=== PATIENT | female | born 1950 | race Caucasian/White ===

== ENCOUNTER → 2024-03-01 14:20 | Outpatient (REF) | payer MEDICARE, SELFPAY ==
[2024-03-01 16:27] LABS: % Basophils 0.8 % (0-2); % Eosinophils 3.1 % (0-6); % Immature Granulocytes 0.2 % (0-0.5); % Lymphocytes 30.1 % (20.5-51.1); % Monocytes 8.7 % (1.7-9.3); % Neutrophils 57.1 % (42.2-75.2); Absolute Basophils 0.1 10^3/uL (0-0.2); Absolute Eosinophils 0.3 10^3/uL (0-0.7); Absolute Lymphocytes 2.9 10^3/uL (1.2-3.4); Absolute Monocytes 0.8 10^3/uL (0.1-0.6); Absolute Neutrophils 5.5 10^3/uL (1.4-6.5); Hemoglobin 16.2 g/dL (12.0-16.0); Mean Corp Hgb Conc. 33.8 g/dL (33.0-37.0); Mean Corpuscular Hgb 31.5 pg (27.0-31.0); Mean Corpuscular Volume 93.4 fL (81.0-99.0); Mean Platelet Volume 10.4 fL (7.4-10.4); Nucleated Red Blood Cells % 0 %; Platelet Count 211 10^3/uL (130-400); Red Blood Cell Count 5.14 10^6/uL (4.20-5.40); Red Cell Dist. Width 13.4 % (11.5-14.5); White Blood Cell Count 9.6 10^3/uL (4.8-10.8)
[2024-03-01 16:38] LABS: ALT (SGPT) 30 U/L (0-35); AST (SGOT) 32 U/L (14-36); Albumin 4.9 g/dl (3.5-5.0); Alkaline Phosphatase 76 U/L (38-126); Blood Urea Nitrogen 14 mg/dl (7-17); Calcium 9.7 mg/dl (8.4-10.2); Carbon Dioxide 32 mmol/L (22-30); Chloride 98 mmol/L (98-107); Glucose 83 mg/dl (70-99); LDH 241 U/L (120-246); Potassium 3.8 mmol/L (3.5-5.1); Sodium 136 mmol/L (135-145); Total Bilirubin 0.5 mg/dl (0.2-1.3); Total Protein 7.6 g/dl (6.3-8.2); Uric Acid 6.4 mg/dl (2.5-6.2); eGFR > 60.00
== END ==
LOC: REG 14:20
PROVIDERS: ATTENDING PHYSICIAN Internal Medicine Hematology & Oncology; FAMILY PHYSICIAN Internal Medicine; REFERRING PHYSICIAN Internal Medicine Rheumatology
DX: R71.8 Other abnormality of red blood cells (principal); R79.0 Abnormal level of blood mineral; I82.409 Acute embolism and thrombosis of unspecified deep veins of unspecified lower extremity; D75.1 Secondary polycythemia; C85.19 Unspecified B-cell lymphoma, extranodal and solid organ sites
CPT/HCPCS: 36415; 80053; 83615; 84550; 85025

== ENCOUNTER → 2024-03-12 07:12 | Outpatient (REF) | payer MEDICARE, SELFPAY | LOC: RCS 07:12 | PROVIDERS: ATTENDING PHYSICIAN Student in an Organized Health Care Education/Training Program; FAMILY PHYSICIAN Internal Medicine; OTHER PHYSICIAN Internal Medicine Rheumatology; REFERRING PHYSICIAN Internal Medicine Hematology & Oncology | DX: C85.99 Non-Hodgkin lymphoma, unspecified, extranodal and solid organ sites (principal) | CPT/HCPCS: 93306 ==

== ENCOUNTER → 2024-03-14 09:30 | Outpatient (REF) | payer MEDICARE, SELFPAY ==
[2024-03-14 10:09] LABS: % Basophils 0.9 % (0-2); % Eosinophils 4.1 % (0-6); % Immature Granulocytes 0.2 % (0-0.5); % Lymphocytes 29.1 % (20.5-51.1); % Monocytes 12.2 % (1.7-9.3); % Neutrophils 53.5 % (42.2-75.2); Absolute Basophils 0.1 10^3/uL (0-0.2); Absolute Eosinophils 0.4 10^3/uL (0-0.7); Absolute Lymphocytes 2.5 10^3/uL (1.2-3.4); Absolute Neutrophils 4.6 10^3/uL (1.4-6.5); Hematocrit 47.6 % (37.0-47.0); Hemoglobin 16.2 g/dL (12.0-16.0); Mean Corpuscular Hgb 31.8 pg (27.0-31.0); Mean Corpuscular Volume 93.3 fL (81.0-99.0); Mean Platelet Volume 10.1 fL (7.4-10.4); Nucleated Red Blood Cells % 0 %; Platelet Count 194 10^3/uL (130-400); White Blood Cell Count 8.6 10^3/uL (4.8-10.8)
[2024-03-14 10:18] VITALS: BP 133/67; BP_SYST 82
[2024-03-14 10:18] LABS: INR 0.97; PT 12.9 Sec (11.4-14.6)
[2024-03-14] MEDS: ATIVAN 0.5 MG IV (10:42)
[2024-03-14] MEDS: NSS (PRESERVATIVE FREE) 0.25 ML IV (10:43)
[2024-03-14] MEDS: FLUSH (NSS) 1 FLUSH IV (10:43)
[2024-03-14 11:52] VITALS: BP 113/95
== END ==
LOC: RADI 09:30
PROVIDERS: ATTENDING PHYSICIAN Internal Medicine Hematology & Oncology; FAMILY PHYSICIAN Internal Medicine; REFERRING PHYSICIAN Internal Medicine Rheumatology
DX: R71.8 Other abnormality of red blood cells (principal); R79.0 Abnormal level of blood mineral; D68.8 Other specified coagulation defects; D75.1 Secondary polycythemia
CPT/HCPCS: 88305; 88311; 88312; 36415; 38222; 77012; 85025; 85610; 88313; 88341; 88342

== ENCOUNTER → 2024-03-25 09:31 | Outpatient (REF) | payer MEDICARE, SELFPAY ==
[2024-03-25 10:10] VITALS: BP 121/66; BP_SYST 72
[2024-03-25] MEDS: VANCOCIN 200 IV (11:23)
[2024-03-25 12:35] VITALS: BP 111/68
[2024-03-25 12:40] VITALS: BP 125/63
[2024-03-25 12:45] VITALS: BP 109/67
== END ==
LOC: RADI 09:31
PROVIDERS: ATTENDING PHYSICIAN Internal Medicine Hematology & Oncology; FAMILY PHYSICIAN Internal Medicine
DX: C85.19 Unspecified B-cell lymphoma, extranodal and solid organ sites (principal)
CPT/HCPCS: 36561; 38222; 76937; 77001; 77012; 99152; 99153; C1788

== ENCOUNTER → 2024-04-15 10:37 | Outpatient (REF) | payer MEDICARE, SELFPAY ==
[2024-04-15 12:51] LABS: % Basophils 0.6 % (0-2); % Eosinophils 5.1 % (0-6); % Immature Granulocytes 0.2 % (0-0.5); % Lymphocytes 27.5 % (20.5-51.1); % Monocytes 9.8 % (1.7-9.3); % Neutrophils 56.8 % (42.2-75.2); Absolute Eosinophils 0.3 10^3/uL (0-0.7); Absolute Lymphocytes 1.7 10^3/uL (1.2-3.4); Absolute Monocytes 0.6 10^3/uL (0.1-0.6); Absolute Neutrophils 3.6 10^3/uL (1.4-6.5); Hematocrit 44.7 % (37.0-47.0); Mean Corp Hgb Conc. 33.6 g/dL (33.0-37.0); Mean Corpuscular Hgb 30.7 pg (27.0-31.0); Mean Corpuscular Volume 91.6 fL (81.0-99.0); Mean Platelet Volume 10.4 fL (7.4-10.4); Nucleated Red Blood Cells % 0 %; Platelet Count 202 10^3/uL (130-400); Red Blood Cell Count 4.88 10^6/uL (4.20-5.40); White Blood Cell Count 6.3 10^3/uL (4.8-10.8)
[2024-04-15 13:37] LABS: ALT (SGPT) 25 U/L (0-35); AST (SGOT) 38 U/L (14-36); Albumin 4.5 g/dl (3.5-5.0); Alkaline Phosphatase 70 U/L (38-126); Blood Urea Nitrogen 16 mg/dl (7-17); Calcium 9.1 mg/dl (8.4-10.2); Carbon Dioxide 29 mmol/L (22-30); Chloride 101 mmol/L (98-107); Glucose 92 mg/dl (70-99); Potassium 3.8 mmol/L (3.5-5.1); Sodium 141 mmol/L (135-145); Total Bilirubin 0.7 mg/dl (0.2-1.3); Total Protein 7.2 g/dl (6.3-8.2); eGFR > 60.00
[2024-04-15 13:39] LABS: C-Reactive Protein < 5.00 mg/L (0.0-10.00)
== END ==
LOC: HWLAB 10:37
PROVIDERS: ATTENDING PHYSICIAN Internal Medicine Hematology & Oncology; FAMILY PHYSICIAN Internal Medicine; REFERRING PHYSICIAN Internal Medicine Rheumatology
DX: R71.8 Other abnormality of red blood cells (principal); R79.0 Abnormal level of blood mineral; D75.1 Secondary polycythemia; C85.19 Unspecified B-cell lymphoma, extranodal and solid organ sites; E55.9 Vitamin D deficiency, unspecified; M35.00 Sjogren syndrome, unspecified; Z51.81 Encounter for therapeutic drug level monitoring
CPT/HCPCS: 36415; 80053; 82784; 83521; 84155; 84165; 85025; 86140; 86334

== ENCOUNTER → 2024-04-16 15:50 | Outpatient (REF) | payer MEDICARE, SELFPAY ==
[2024-04-16 10:20] LABS: Hepatitis B Surface Antigen Negative (Negative)
[2024-04-16 10:38] LABS: Hepatitis B Core Ab, Total Negative (Negative); Hepatitis B Surface Antibody Negative
== END ==
LOC: OIDL 15:50
PROVIDERS: ATTENDING PHYSICIAN Internal Medicine Hematology & Oncology
DX: R71.8 Other abnormality of red blood cells (principal)
CPT/HCPCS: 84550; 86704; 86706; 87340

== ENCOUNTER 2024-04-17 14:29 | Inpatient (IN) | payer MEDICARE, SELFPAY ==
[2024-04-17] VITALS (11 sets, daily range): BP systolic 105–126; BP diastolic 51–82; BMI 36.1
[2024-04-17 10:19] LABS: % Basophils 0.1 % (0-2); % Eosinophils 0.1 % (0-6); % Immature Granulocytes 0.4 % (0-0.5); % Lymphocytes 7.5 % (20.5-51.1); % Monocytes 9.5 % (1.7-9.3); % Neutrophils 82.4 % (42.2-75.2); Absolute Immature Granulocytes 0.1 10^3/uL (0-0.05); Absolute Lymphocytes 1.4 10^3/uL (1.2-3.4); Absolute Monocytes 1.8 10^3/uL (0.1-0.6); Absolute Neutrophils 15.7 10^3/uL (1.4-6.5); Hematocrit 38.7 % (37.0-47.0); Hemoglobin 14.4 g/dL (12.0-16.0); Mean Corp Hgb Conc. 37.2 g/dL (33.0-37.0); Mean Corpuscular Hgb 31.4 pg (27.0-31.0); Mean Corpuscular Volume 84.5 fL (81.0-99.0); Mean Platelet Volume 9.9 fL (7.4-10.4); Nucleated Red Blood Cells % 0 %; Platelet Count 214 10^3/uL (130-400); Red Blood Cell Count 4.58 10^6/uL (4.20-5.40); Red Cell Dist. Width 11.9 % (11.5-14.5)
--- NOTE | 2024-04-17 10:19 | ED.GENMED ---
History of Present Illness
General
Chief Complaint: Chest Pain
Source: patient
Time Seen by Provider: 04/17/24 10:10
Travel History
Have you had any contact with someone who has COVID-19?: No
Do you have any symptoms of coronavirus? Fever > 100 degrees, chills, cough, shortness of breath, sore throat, loss of taste or smell, muscle aches, or headache?: No
History of Present Illness
History of Present Illness:
73-year-old female presents to the emergency room complaining of chest pain, shortness of breath, tremors which began in the middle of the night. Patient had her first chemotherapeutic infusion yesterday for lymphoma. During the infusion of the
last medication she developed some itching. This was treated with Benadryl and an additional dose of Solu-Medrol. This morning patient awoke with above symptoms. She took an extra Zofran but did not seem to be any better.. Chest pain has been
ongoing.
Past History
Past History
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
ED Past Surgical History: Orthopedic and Tonsilectomy
Social History
Tobacco: Non-smoker
Phy Exam
Physical Exam
Physical Exam:
General: Awake, Alert, Oriented X3. Anxious
Vitals: unremarkable
Head: Atraumatic
Eyes: Pupils equal, EOMI
Throat: Airway intact, no exudates, no angioedema
Neck: Trachea midline
Lungs: Clear and equal b/l, no wheezing
Heart: Regular rate, no murmurs
Abd: Soft, Nontender, No pulsatile mass
Neuro: Nonfocal
Skin: Warm, dry, no rash
Extremities: pulses equal b/l, no edema
Scores
Heart Score for Chest Pain Patients
STEMI patient?: Not applicable
Course
Orders/Labs/Results
Orders:
Orders
04/17/24 10:06
Electrocardiogram (*1) Urgent
Reason for Study: Chest Pain
EKG- Treatment ONCE
04/17/24 10:08
Complete Blood Count/With Diff Urgent
Comprehensive Metabolic Panel Urgent
Magnesium Urgent
Comment: ADD ON
Serum Osmolality Urgent
Comment: ADD ON
Troponin I Urgent
04/17/24 10:20
Lorazepam [Ativan] 1 mg IV NOW STA
04/17/24 10:21
CR Chest - 2 Views Urgent
Comment:
Reason For Exam: shortness of breath, chest pain
04/17/24 11:55
Potassium Chloride 10% Elixir [KCl Elixir] 40 meq PO NOW STA
Potassium Chloride [KCl] 40 meq 0.9% Sodium Chloride 250 ml [Nss] 250 ml IV NOW
04/17/24 12:09
Potassium Chloride [KCl] 40 meq 0.9% Sodium Chloride 250 ml [Nss] 250 ml IV NOW
04/17/24 12:29
Osmolality, Random Urine Urgent
Date Specimen was Collected: 04/17/24
Time Specimen was Collected: 12:28
Urine Sodium Urgent
Date Specimen was Collected: 04/17/24
Time Specimen was Collected: 12:28
04/17/24 13:40
Add On- LAB Routine
Tests Added?: Mg
Add On- LAB Routine
Tests Added?: serum Osm
04/17/24 13:53
CARDIOLOGY CONSULT Routine
Consulting Provider: Tonny Farias
Was physician already notified: Yes
Reason for consult: chest pain
ONCOLOGY CONSULT Routine
Consulting Provider: Alexandro Forte
Was physician already notified: Yes
Reason for consult: Lymphoma
04/17/24 13:55
NEPHROLOGY CONSULT Routine
Consulting Provider: Jorge Vann V.
Was physician already notified: Yes
Reason for consult: Hyponatremia
PSYCHIATRY CONSULT Routine
Consulting Provider: Burke Schumacher
Was physician already notified: Yes
Reason for consult: severe anxiety
04/17/24 14:00
Blood Culture Q30M
FRANCESCO Source: Blood/Venous
Specimen Description:
04/17/24 14:02
Admit/Transfer Patient As Directed
Co-Sign Provider:
Level of Care: Inpatient admission
Assign to:: Telemetry
Physician / Group: Maci
Diagnosis: chest pain, hyponatremia, hypokalemia
Reason for Telemetry: Chest Pain syndromes
Date to Stop Telemetry: 04/19/24
Time to Stop Telemetry: 11:00
Reason for Hospitalization: chest pain, hyponatremia, hypokalemia
Expected length of stay greater than two midnights?: Yes
ELOS- Estimated Length of Stay in days: 3
I certify the patient meets the requirements for IP care: Yes
04/17/24 14:04
Code Status As Directed
Resuscitation Status: Full Code
04/17/24 14:30
Blood Culture Q30M
FRANCESCO Source: Blood/Venous
Specimen Description:
04/19/24 11:00
DC Protocol for Telemetry ONCE
Abnormal Lab Results
04/17/24 04/17/24
10:08 12:29
WBC 19.0 H 10^3/uL
(4.8-10.8)
MCH 31.4 H pg
(27.0-31.0)
MCHC 37.2 H g/dL
(33.0-37.0)
Abs Immat Gran (auto) 0.1 H 10^3/uL
(0-0.05)
Absolute Neuts (auto) 15.7 H 10^3/uL
(1.4-6.5)
Absolute Monos (auto) 1.8 H 10^3/uL
(0.1-0.6)
Neutrophils % 82.4 H %
(42.2-75.2)
Lymphocytes % 7.5 L %
(20.5-51.1)
Monocytes % 9.5 H %
(1.7-9.3)
Sodium 125 L D mmol/L
(135-145)
Potassium 2.8 L D mmol/L
(3.5-5.1)
Chloride 92 L mmol/L
(98-107)
Carbon Dioxide 21 L mmol/L
(22-30)
Creatinine 0.5 L mg/dL
(0.6-1.0)
Glucose 145 H mg/dl
(70-99)
Urine Sodium < 5 L mmol/L
(30-90)
04/17/24 10:08
04/17/24 10:08
Vital Signs
Initial and Last Documented VS:
Initial Vital Signs
Temp Pulse Resp BP Pulse Ox
97.7 F 80 20 121/51 98
04/17/24 09:58 04/17/24 09:58 04/17/24 09:58 04/17/24 09:58 04/17/24 09:58
Last Documented Vital Signs
Temp Pulse Resp BP Pulse Ox
97.7 F 73 17 121/51 99
04/17/24 09:58 04/17/24 10:10 04/17/24 10:10 04/17/24 09:58 04/17/24 10:10
MDM/Problems Addressed
Differential Diagnosis Includes:
post-chemo effects, ptx, dehydration
MDM/Problems Addressed:
Patient presents with chest pain, shakes, nausea. Patient seems quite anxious. Milligram of Ativan helped her become much more comfortable. However she was still not feeling back to baseline. Labs show that she has significant hyponatremia of
125. In addition her potassium level is quite low at 2.8. These were tested just before her chemo and were normal approximately 48 to 72 hours ago. Discussed patient's presentation with nephrology and oncology. Hyponatremia is obviously acute
and likely a combination of medication effect and polydipsia. Sodium will be treated with fluid restriction. Low potassium treated with both p.o. and IV replacement. Patient will be hospitalized to carefully monitor the repletion of her
electrolytes.
Chronic conditions affecting care: Other (Lymphoma)
*Radiology
Radiology exam reviewed: radiology read reviewed
*Pulse Oximetry
Patient hypoxic: no
*EKG
Interpreted by ED Provider?: Yes
Interpretation: normal
Heart Rate: 75
Rate: normal
Rhythm: sinus
[place]: normal axis
Interval: long QT
QRS Pattern: normal QRS
Ischemia: no ischemia
*Commercial Energy Auditor Interpretation
Rate: normal
Interpretation: normal
Rhythm: sinus
*Critical Care Note
Total Time (30-74mins, 75-104mins- exclusive of procedures): Not Applicable
ED Attending Note
-
Portions of this chart may have been created with voice recognition software.� Occasional wrong word or��sound alike� substitutions may have occurred due to the inherent limitations of voice recognition software.
Discharge Plan
Departure
Patient Disposition: Admit
Date of Disposition: 04/17/24
Time of Disposition: 13:26
Admit to: Med/Surg
Presentation/result/management discussed w/ accepting MD/DO: Hospitalist
Condition: Fair
Discharge Problem:
Acute hypokalemia, Acute hyponatremia
Interventions
Interventions:
*Risk Screen - Suicide Last Done: 04/17/24 09:58
*General Assessment Last Done: 04/17/24 09:58
*Neglect/Abuse Screening Last Done: 04/17/24 09:58
*ED COVID-19 Vaccine History Last Done: 04/17/24 10:55
ED- Cardiac Assessment Last Done: 04/17/24 10:37
ED- Pulmonary Assessment Last Done: 04/17/24 10:37
[2024-04-17] MEDS: ATIVAN 1 MG IV (10:32)
[2024-04-17 10:34] LABS: AST (SGOT) 36 U/L (14-36); Albumin 3.9 g/dl (3.5-5.0); Alkaline Phosphatase 76 U/L (38-126); Blood Urea Nitrogen 16 mg/dl (7-17); Calcium 8.5 mg/dl (8.4-10.2); Carbon Dioxide 21 mmol/L (22-30); Chloride 92 mmol/L (98-107); Estimated Creatinine Clearance 100 ml/min; Glucose 145 mg/dl (70-99); Potassium 2.8 mmol/L (3.5-5.1); Sodium 125 mmol/L (135-145); Total Bilirubin 0.4 mg/dl (0.2-1.3); Total Protein 6.3 g/dl (6.3-8.2); eGFR > 60.00
[2024-04-17 10:45] LABS: Troponin I < 0.012 ng/ml
[2024-04-17 10:56] LABS: ALT (SGPT) 34 U/L (0-35)
[2024-04-17] MEDS: KCL 270 MEQ IV ×2 (12:28→18:25)
[2024-04-17] MEDS: KCL ELIXIR 40 MEQ PO (12:34)
[2024-04-17 12:53] LABS: Osmolality Urine 757 mOsm/kg (300-900)
[2024-04-17 13:02] LABS: Urine Sodium < 5 mmol/L (30-90)
--- NOTE | 2024-04-17 13:33 | HPS.HSE ---
Family Physician
-
Family Physician: Konrad Mcintyre
Chief Complaint
-
Chest pain, shortness of breath, tremors
History of Present Illness
73 y/o F with PMHx:
Lymphoma (started chemo 04/17/24)
Essential hypertension
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
Lumbar spinal stenosis
Rheumatoid arthritis
Who presents with multiple chief complaints including chest pain, shortness of breath, tremors. The chest pain is chronic. She received her first dose of chemotherapy yesterday for her lymphoma. At that time she had some pruritus and received
Solu-Medrol and Benadryl. The patient reports she has had chest pain since her lymphoma diagnosis about a month ago. She says it is associated with anxiety and is pressure-like. She is also shortness of breath. Her chest pain and shortness of
breath have been worse over the last 24 hours. Denies nausea, vomiting, diarrhea, change in urinary frequency, dysuria, suprapubic pain.
Medical History
Past Medical History
Past Medical History: Reports Other (as per HPI)
Past Surgical History: Reports Other (N/A)
Social History
Tobacco: Non-smoker
Alcohol: None
Drug: None
Family History
Family History: Not pertinent
Allergies / Home Medications
Allergies reflects when Allergies were last updated in [facility].
Home Medications with original date entered in [facility]
Allergy/Medication List:
Allergies
Allergy/AdvReac Type Severity Reaction Status Date / Time
Iodinated Contrast Media Allergy Rash Verified 04/17/24 10:07
kiwi Allergy Unknown Verified 04/17/24 10:07
peanut Allergy Unknown Verified 04/17/24 10:07
amoxicillin [From Augmentin] AdvReac diarrhea Verified 04/17/24 12:09
clavulanic acid AdvReac diarrhea Verified 04/17/24 12:09
[From Augmentin]
Home Medications
calcium citrate 200 mg (950 mg) tablet 200 mg PO DAILY 03/14/24
cholecalciferol (vitamin D3) 50 mcg (2,000 unit) capsule (Vitamin D3) 50 mcg PO DAILY 03/14/24
hydrochlorothiazide 25 mg tablet 25 mg PO DAILY 03/14/24
nystatin 100,000 unit/gram topical cream 1 applic topical DAILYPRN PRN skin issues 03/14/24
zolpidem 10 mg tablet 10 mg PO HSPRN PRN insomnia 03/14/24
folic acid 800 mcg tablet 0.8 mg PO DAILY 03/21/24
allopurinol 300 mg tablet 300 mg PO DAILY 04/17/24
cyclophosphamide 100 mg/mL intravenous solution 1,470 mg IV Q3W 04/17/24
docusate sodium 100 mg tablet 100 mg PO DAILYPRN PRN constipation 04/17/24
doxorubicin 20 mg/10 mL intravenous solution 98 mg IV Q3W 04/17/24
eflapegrastim-xnst 13.2 mg/0.6 mL subcutaneous syringe 13.2 mg SC UD 04/17/24
lidocaine-prilocaine 2.5 %-2.5 % topical cream 1 applic topical DAILYPRN PRN apply to port before chemo 04/17/24
loratadine 10 mg tablet (Claritin) 10 mg PO DAILY 04/17/24
ondansetron 8 mg disintegrating tablet 8 mg PO Q8HPRN PRN nausea 04/17/24
prednisone 50 mg tablet 50 mg PO UD 04/17/24
rituximab 10 mg/mL concentrate,intravenous 735 mg IV Q3W 04/17/24
therapeutic multivitamin 1 tab PO DAILY 04/17/24
vincristine 1 mg/mL intravenous solution 2 mg IV Q3W 04/17/24
Review of Systems
-
History Source: Patient
A 12 point ROS was completed and negative except as noted: Yes
Physical Exam
Vital Signs
Vital Signs
Temp Pulse Resp BP Pulse Ox
97.7 F 73 17 121/51 99
04/17/24 09:58 04/17/24 10:10 04/17/24 10:10 04/17/24 09:58 04/17/24 10:10
Physical Exam
General: Other (.)
Laboratory Results
-
04/17/24 10:08
04/17/24 10:08
Laboratory Results
Total Bilirubin 0.4 mg/dl (0.2-1.3) 04/17/24 10:08
AST 36 U/L (14-36) 04/17/24 10:08
ALT 34 U/L (0-35) 04/17/24 10:08
Alkaline Phosphatase 76 U/L (38-126) 04/17/24 10:08
Troponin I < 0.012 ng/ml 04/17/24 10:08
Impression/Plan
-
Gen: NAD, AAOx3.
Eyes: EOMI, PERRLA, no scleral icterus.
Neck: supple.
CV: RRR, +S1/S2, no m/r/g.
Resp: CTAB, no rales, wheezes, or rhonchi.
Abd: +BS, soft, NT, ND
Skin: No rashes.
Neuro: CN 2-12 intact, non-focal.
Psych: anxious
CXR: There is no acute cardiopulmonary process.
Hyponatremia:
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
-Fluid restriction as per discussion with nephrology
-stop HCTZ
Hypokalemia:
-80meq K ordered on admission
-check Mg
Chest pain:
-Patient reports this is associated with anxiety but is pressure-like
-Echo March 2024: EF 65-70%, mild concentric LVH, normal diastolic fxn, mild TR
-trend trop
-monitor on tele
-c/s cards
Lymphoma:
-Patient received her first chemotherapy yesterday
-Consult oncology
-Leukocytosis with left shift noted. No evidence of infection at this moment. Clear chest x-ray. Patient denies urinary symptoms. As per discussion with Dr. Forte, leukocytosis currently likely due to chemo 04/16/24.
-Patient reports she was supposed to get Neulasta today
-Check blood cultures
-cont allopurinol
Morbid obesity due to excess calories
FULL/Lovenox
[2024-04-17 14:13] LABS: Magnesium 1.8 mg/dl (1.6-2.3)
[2024-04-17 14:50] LABS: Osmolality Serum 263 mOsm/kg (275-300)
--- NOTE | 2024-04-17 14:54 | CON.CAR ---
Addendum entered and electronically signed by Donta Bocanegra MD 04/17/24 16:00:
I saw and examined the patient.
The Time Study Engineer's note was reviewed and I agree with the note.
Comment: Briefly, 73-year-old woman past medical history of newly diagnosed lymphoma initiated on chemotherapy yesterday who presents with nausea, chest discomfort and shortness of breath
Tells me that following chemotherapy yesterday she was significantly nauseous and was recommended to take Zofran to treat this
Reportedly felt very short of breath and tremulous and had associated chest pressure
Has had intermittent chest pressure over the last month which is brought on by emotional stress, the symptoms are never exertional in nature
Troponin here is undetectable
ECG with prolonged QTc, which I suspect is related to her electrolyte abnormalities, but no ischemic changes
Recent transthoracic echocardiogram with preserved LV function and no significant valvular pathology
In addition, I reviewed her recent CT of the chest and do not see any significant coronary artery calcifications
Recommend repeat troponin and ECG
If these are unremarkable we can arrange for outpatient pharmacologic nuclear stress test and follow-up in our office
Original Note:
Consultation
Consultation Request
Date/Time Consultation Requested: 04/17/2024
Date/Time Consultation Performed: 04/17/2024
Requesting Provider: Dr. Lux
Performing Provider: Dr. Bocanegra
Reason for Consultation: Chest Pain
Medical History
-
History of Present Illness:
HPI: Nancy is a 73-year-old female with past medical history of hypertension, lymphoma, rheumatoid arthritis, CASSY, prior DVT and PE, lumbar spinal stenosis, and insomnia who presented to ER for evaluation of chest pain, shortness of breath, and
tremors. She recently was diagnosed with lymphoma about a month ago. She states since her diagnosis that she has been having fairly frequent episodes of chest pain which she states are typically related to episodes of increased stress/anxiety.
Her pain is nonexertional in nature. She has not taken anything for the pain. She describes the pain as a pressure-like sensation along the left side of her chest. She started chemotherapy yesterday and had some pruritus and received Solu-Medrol
and Benadryl. She states this morning she woke up and felt terrible with her usual chest pain, however also had associated shortness of breath and severe nausea. She took a dose of Zofran which she states actually made her feel worse, prompting
emergency room evaluation. When she arrived to the emergency room, she was noted to have hyponatremia, hypokalemia, and leukocytosis. She has been admitted and cardiology consulted for evaluation of chest pain.
PMH:
Hypertension
Lymphoma - recently started chemo 04/16/2024
Rheumatoid arthritis
Polycythemia
CASSY
h/o DVT/PE post-op from back surgery
Insomnia
Lumbar spinal stenosis
Past Medical History
Past Medical History: Other (In HPI)
Past Surgical History: Tonsilectomy and Other (Lumbar laminectomy, fine-needle aspiration of thyroid nodule)
Social History
Tobacco: Non-Smoker
Alcohol: None
Drug: None
Personal:
Living: With Family
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
Family History
Family History: Other (Father had rheumatic valve disease and required valve replacement, mother of congestive heart failure)
Allergies / Home Medications
Allergy/AdvReac Type Severity Reaction Status Date / Time
Iodinated Contrast Media Allergy Rash Verified 04/17/24 10:07
kiwi Allergy Unknown Verified 04/17/24 10:07
peanut Allergy Unknown Verified 04/17/24 10:07
amoxicillin [From Augmentin] AdvReac diarrhea Verified 04/17/24 12:09
clavulanic acid AdvReac diarrhea Verified 04/17/24 12:09
[From Augmentin]
�Medication �Instructions �Recorded �Confirmed �Type
calcium citrate 200 mg (950 mg) 200 mg PO DAILY 03/14/24 04/17/24 History
tablet
cholecalciferol (vitamin D3) 50 50 mcg PO DAILY 03/14/24 04/17/24 History
mcg (2,000 unit) capsule (Vitamin
D3)
hydrochlorothiazide 25 mg tablet 25 mg PO DAILY 03/14/24 04/17/24 History
nystatin 100,000 unit/gram topical 1 applic topical DAILYPRN PRN skin 03/14/24 04/17/24 History
cream issues
zolpidem 10 mg tablet 10 mg PO HSPRN PRN insomnia 03/14/24 04/17/24 History
folic acid 800 mcg tablet 0.8 mg PO DAILY 03/21/24 04/17/24 History
allopurinol 300 mg tablet 300 mg PO DAILY 04/17/24 04/17/24 History
cyclophosphamide 100 mg/mL 1,470 mg IV Q3W 04/17/24 04/17/24 History
intravenous solution
docusate sodium 100 mg tablet 100 mg PO DAILYPRN PRN constipation 04/17/24 04/17/24 History
doxorubicin 20 mg/10 mL 98 mg IV Q3W 04/17/24 04/17/24 History
intravenous solution
eflapegrastim-xnst 13.2 mg/0.6 mL 13.2 mg SC UD 04/17/24 04/17/24 History
subcutaneous syringe
lidocaine-prilocaine 2.5 %-2.5 % 1 applic topical DAILYPRN PRN 04/17/24 04/17/24 History
topical cream apply to port before chemo
loratadine 10 mg tablet (Claritin) 10 mg PO DAILY 04/17/24 04/17/24 History
ondansetron 8 mg disintegrating 8 mg PO Q8HPRN PRN nausea 04/17/24 04/17/24 History
tablet
prednisone 50 mg tablet 50 mg PO UD 04/17/24 04/17/24 History
rituximab 10 mg/mL 735 mg IV Q3W 04/17/24 04/17/24 History
concentrate,intravenous
therapeutic multivitamin 1 tab PO DAILY 04/17/24 04/17/24 History
vincristine 1 mg/mL intravenous 2 mg IV Q3W 06/12/24 06/12/24 History
solution
Review of Systems
-
History Source: Patient
All other systems: Negative unless noted
Physical Exam
Vital Signs
Temp Pulse Resp BP Pulse Ox
97.7 F 75 16 124/82 97
04/17/24 09:58 04/17/24 14:45 04/17/24 14:15 04/17/24 14:00 04/17/24 14:45
Lab Results
04/17/24 10:08
04/17/24 10:08
Troponin I < 0.012 ng/ml 04/17/24 10:08
Physical Exam
General: Well Developed, Well Nourished and No Apparent Distress
HEENT: Normocephalic, Anicteric and Moist Mucous Membranes
Respiratory: Clear and Non Labored Respirations
Cardiac: S1/S2 and Regular Rhythm
Musculoskeletal: No Clubbing, No Cyanosis and No Edema
Skin: Warm and Dry
Neuro: AO x 3 and Nonfocal/Grossly Intact
Psych: Calm
Impression / Plan
-
PCP: Dr. Cantu
Cardiology: None prior to admission, initially seen by Dr. Bocanegra
Impression:
Presented w/ chest pain, SOB, nausea
Hypokalemia
Hyponatremia
Leukocytosis
Hypertension
Lymphoma - recently started chemo 04/16/2024
Rheumatoid arthritis
Polycythemia
CASSY
h/o DVT/PE post-op from back surgery
Insomnia
Lumbar spinal stenosis
Echo 03/12/2024: EF 65 to 70%, no RWMA, mild cLVH, GLS -19.9%, mild TR
Plan:
-Presented with chest pain, shortness of breath, and nausea. She has had chronic chest pain for the past month after being diagnosed with lymphoma.
-She believes it is related to anxiety as pain typically occurs when she is under increased stress.
-Initial troponin negative. EKG reviewed, shows sinus rhythm with no acute ischemic changes.
-QTc is mildly prolonged at 511 ms. Of note, she did take a dose of Zofran this a.m. Continue to follow. Would recommend avoiding QT prolonging medications
-Prior echo 03/12/2024 with preserved ejection fraction and no regional wall motion abnormalities. No need to repeat at this time.
-Chest x-ray with no acute cardiopulmonary disease.
-Continue to trend troponin overnight
-Recheck EKG in AM.
-If troponin remains negative, will arrange for outpatient Lexiscan stress test.
-Blood pressure well-controlled. As outpatient is maintained on HCTZ 25 mg daily, hold for now with hyponatremia and hypokalemia.
HPI: Nancy is a 73-year-old female with past medical history of hypertension, lymphoma, rheumatoid arthritis, CASSY, prior DVT and PE, lumbar spinal stenosis, and insomnia who presented to ER for evaluation of chest pain, shortness of breath, and
tremors. She recently was diagnosed with lymphoma about a month ago. She states since her diagnosis that she has been having fairly frequent episodes of chest pain which she states are typically related to episodes of increased stress/anxiety.
Her pain is nonexertional in nature. She has not taken anything for the pain. She describes the pain as a pressure-like sensation along the left side of her chest. She started chemotherapy yesterday and had some pruritus and received Solu-Medrol
and Benadryl. She states this morning she woke up and felt terrible with her usual chest pain, however also had associated shortness of breath and severe nausea. She took a dose of Zofran which she states actually made her feel worse, prompting
emergency room evaluation. When she arrived to the emergency room, she was noted to have hyponatremia, hypokalemia, and leukocytosis. She has been admitted and cardiology consulted for evaluation of chest pain.
Data Reviewed
-
EKG: Tracing Personally Visualized and interpreted
Radiology: Report Reviewed by me
Labs: Labs Reviewed by me
Old Records: Reviewed
--- NOTE | 2024-04-17 16:10 | CON.MD ---
Addendum entered and electronically signed by Burke Schumacher MD 04/17/24 16:33:
note qtc is 511.
Original Note:
Consultation - Medical
-
patient seen chart reviewed. patient is a 73 year old woman who was thought she was going for removal of a simple cyst on her abdomen in february. the cyst turned out to be lymphoma. the type of lymphoma was difficult to categorize and she was then
seen at [facility] where she said two lymphoma experts could not agree on the type of lymphome and the treatment. she remembers being asked 'how risk averse are you?' in discussing treatment. she began treatment yesterday. recounts that they
were told that this treatment could be very toxic 'staff wore protective garments' and they were told the bladder was particularly vulnerable to the toxins and she was told to 'keep drinking keep drinking'. she was also told she would lose her hair
in ten days. she had an allergic rxn during the infusion and was given antihistamines and steroids. she awoke during the night with terrible nausea and her pcp gave her zoffran. she then started to experience chest pain shortness of breath and
tremor hence fame to the ER. she reports she has always been an anxious person but only had short term rx with 'something' about 15 years ago when she moved to [place]. 's job kept transferring him. otherwise she has dealt with her anxiety
without psych rx. sleep not great patient has long hx difficulty sleeping currently worse given dx was taking ambien appetite ok. prior to february was in her usual okay state without particular difficulties psychologically. another stress currently
is d in law who suffered a miscarriage then an ectopic preg is now in the early stages of and this worries her
past psych hx see above
medical hx lymphoma htn RA hx polycythemia martha hx embolus/thrombus disc disease current back pain has had surgery overweight hypnatremia hypokalemia inc wbc glucose 145
substance abuse none
fh none
social resides w h who is also retired. 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 now in [place] as d lives here. resides in [place] [facility] where people seem
very supportive spent most of her life in [place] where she had a lot of friends. enjoys reading in several book clubs....
mse alert pleasant speech and thought process nl affect ok mood is anxious no si no psychosis aver intell insight judgment good
dx unspecified anxiety adjustment d/o w anxious fx
plan would use ativan o.5 mg up to qid. i see no real reason currently for other rx. ambien 5 mg q hs as she has been taking ambien albeit ten mg dose. supportive psychotherapy and cbt for insomnia could be helpful as out pt. will see her
tomorrow.
--- NOTE | 2024-04-17 17:27 | W.CON.NEPH ---
Consultation
-
Date/Time Consultation Requested: April 17, 2024 3 PM
Date/Time Consultation Performed: April 17, 2024 5:30 PM
Requesting Provider: Dr. Lux
Performing Provider: Dr. Mercado
Reason for Consultation: Hyponatremia
Medical History
-
Chief Complaint: Chest pain and shortness of breath
History of Present Illness:
This is a 73-year-old female with known hypertension on a monotherapy regimen with hydrochlorothiazide in the past. This has helped with her blood pressures for years. Earlier in the year she had an abdominal cyst which was treated with a steroid
injection which had resolved. However it then seemed to have returned though offset to the left side. This time it was nodular and dense. It was surgically removed but pathology disclosed lymphoma. She was sent to [facility] for
evaluation. 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 She had a port placed and began chemotherapy yesterday with R-CHOP. She reports that she had a reaction possibly to the Rituxan aspect. Afterwards she did not feel great and
had some nausea but no vomiting. She had no other GI effects. She did not eat very much but did drink more water. Today she developed shortness of breath as well as chest pressure and came to the emergency room. She was noted to have a sodium
level of 125 and a potassium of 2.8. We are asked to assist with management of this. Since admission her chest pain and shortness of breath have improved though she is now wearing supplemental oxygen.
Past Medical History
Diffuse large cell B cell lymphoma
Hypertension
DVT PE after back surgery
Rheumatoid arthritis
Spinal stenosis
Social History
Tobacco: Non-Smoker
Alcohol: None
Family History
Family History: Not Pertinent
Allergies / Home Medications
Allergy/AdvReac Type Severity Reaction Status Date / Time
Iodinated Contrast Media Allergy Rash Verified 04/17/24 10:07
kiwi Allergy Unknown Verified 04/17/24 10:07
peanut Allergy Unknown Verified 04/17/24 10:07
amoxicillin [From Augmentin] AdvReac diarrhea Verified 04/17/24 12:09
clavulanic acid AdvReac diarrhea Verified 04/17/24 12:09
[From Augmentin]
�Medication �Instructions �Recorded �Confirmed �Type
calcium citrate 200 mg (950 mg) 200 mg PO DAILY 03/14/24 04/17/24 History
tablet
cholecalciferol (vitamin D3) 50 50 mcg PO DAILY 03/14/24 04/17/24 History
mcg (2,000 unit) capsule (Vitamin
D3)
hydrochlorothiazide 25 mg tablet 25 mg PO DAILY 03/14/24 04/17/24 History
nystatin 100,000 unit/gram topical 1 applic topical DAILYPRN PRN skin 03/14/24 04/17/24 History
cream issues
zolpidem 10 mg tablet 10 mg PO HSPRN PRN insomnia 03/14/24 04/17/24 History
folic acid 800 mcg tablet 0.8 mg PO DAILY 03/21/24 04/17/24 History
allopurinol 300 mg tablet 300 mg PO DAILY 04/17/24 04/17/24 History
cyclophosphamide 100 mg/mL 1,470 mg IV Q3W 04/17/24 04/17/24 History
intravenous solution
docusate sodium 100 mg tablet 100 mg PO DAILYPRN PRN constipation 04/17/24 04/17/24 History
doxorubicin 20 mg/10 mL 98 mg IV Q3W 04/17/24 04/17/24 History
intravenous solution
eflapegrastim-xnst 13.2 mg/0.6 mL 13.2 mg SC UD 04/17/24 04/17/24 History
subcutaneous syringe
lidocaine-prilocaine 2.5 %-2.5 % 1 applic topical DAILYPRN PRN 04/17/24 04/17/24 History
topical cream apply to port before chemo
loratadine 10 mg tablet (Claritin) 10 mg PO DAILY 04/17/24 04/17/24 History
ondansetron 8 mg disintegrating 8 mg PO Q8HPRN PRN nausea 04/17/24 04/17/24 History
tablet
prednisone 50 mg tablet 50 mg PO UD 04/17/24 04/17/24 History
rituximab 10 mg/mL 735 mg IV Q3W 04/17/24 04/17/24 History
concentrate,intravenous
therapeutic multivitamin 1 tab PO DAILY 04/17/24 04/17/24 History
vincristine 1 mg/mL intravenous 2 mg IV Q3W 04/17/24 04/17/24 History
solution
Review of Systems
-
Chest pain and shortness of breath improving
All other systems: Negative unless noted
Physical Exam
Vital Signs
Vital Signs
Temp Pulse Resp BP Pulse Ox
97.9 F 76 16 126/64 98
04/17/24 16:39 04/17/24 16:39 04/17/24 16:39 04/17/24 16:39 04/17/24 16:39
Lab Results
WBC 19.0 10^3/uL (4.8-10.8) H 04/17/24 10:08
RBC 4.58 10^6/uL (4.20-5.40) 04/17/24 10:08
Hgb 14.4 g/dL (12.0-16.0) 04/17/24 10:08
Hct 38.7 % (37.0-47.0) 04/17/24 10:08
Plt Count 214 10^3/uL (130-400) 04/17/24 10:08
Sodium 125 mmol/L (135-145) L D 04/17/24 10:08
Potassium 2.8 mmol/L (3.5-5.1) L D 04/17/24 10:08
Chloride 92 mmol/L (98-107) L 04/17/24 10:08
Carbon Dioxide 21 mmol/L (22-30) L 04/17/24 10:08
BUN 16 mg/dl (7-17) 04/17/24 10:08
Creatinine 0.5 mg/dL (0.6-1.0) L 04/17/24 10:08
eGFR > 60.00 04/17/24 10:08
Glucose 145 mg/dl (70-99) H 04/17/24 10:08
Calcium 8.5 mg/dl (8.4-10.2) 04/17/24 10:08
Albumin 3.9 g/dl (3.5-5.0) 04/17/24 10:08
Physical Exam
Patient is awake alert oriented and in no distress. Mood and affect were pleasant, insight and judgment were good. Pupils are equal round and reactive to light, extraocular movements are intact, sclera were anicteric. Hearing was normal, ears and
nose are intact. Oropharynx was clear. Neck was supple with trachea midline and no thyromegaly. Heart was regular rate and rhythm without rubs. Lower extremities with trace edema. Lungs were clear to auscultation bilaterally and with normal
excursion. Abdomen was soft, nontender, with normal active bowel sounds, and no hepatosplenomegaly. Skin was without rash and with normal turgor.
Data Reviewed
-
Radiology: Image Personally Visualized and interpreted (Chest x-ray on 04/17/2024 by my reading shows no acute disease)
Medical Tests (Nuc Med, Echo etc): Image Personally Visualized and interpreted (EKG on 04/17/2024 by my reading shows normal sinus rhythm prolonged QT)
Labs: Labs Reviewed by me (Urine sodium less than 5, urine osmolality 757, sodium 125, potassium 2.8, bicarbonate 21, creatinine 0.5)
Old Records: Reviewed (On December 20, 2023 sodium 142 potassium 3.7 creatinine 0.76)
Assessment/Plan
-
Assessment:
Rheumatoid arthritis
Diffuse large B-cell lymphoma status post R-CHOP 04/16/2024
Hyponatremia
hypokalemia
Hypertension
Plan:
Replace potassium IV
Most likely she is dehydrated/volume depleted. Her history was suggest a mismatch of solute and solvent. IV fluids with normal saline will be given at this time
Follow basic metabolic panel, hypertonic saline may be considered if sodium worsens
Discontinue hydrochlorothiazide permanently if blood pressure rises calcium channel dexter therapy or beta-dexter therapy may be used
Neupogen per oncology
[2024-04-17] MEDS: ATIVAN 0.5 MG PO ×2 (18:24→22:33)
[2024-04-17] MEDS: LOVENOX 40 MG SC (18:24)
[2024-04-17] MEDS: NSS 1000 IV (18:26)
[2024-04-17 19:18] LABS: Troponin I < 0.012 ng/ml
--- NOTE | 2024-04-17 20:14 | W.PN.UPDATE ---
Update Note
Progress Note Update
brought a script from the oncologist to give 100mg daily of prednisone x 5 days post chemotherapy starting 04/16/2024, patient received a dose yesterday. Order was placed.
[2024-04-17] MEDS: DELTASONE 100 MG PO (20:52)
[2024-04-17] MEDS: TYLENOL 650 MG PO (20:52)
[2024-04-17] MEDS: ZOFRAN ODT (ORALLY DISINTEGRATING) 8 MG PO (21:15)
[2024-04-18 01:50] LABS: % Basophils 0.1 % (0-2); % Immature Granulocytes 0.3 % (0-0.5); % Lymphocytes 2.8 % (20.5-51.1); % Monocytes 4.2 % (1.7-9.3); % Neutrophils 92.6 % (42.2-75.2); Absolute Lymphocytes 0.3 10^3/uL (1.2-3.4); Absolute Monocytes 0.5 10^3/uL (0.1-0.6); Hematocrit 39.3 % (37.0-47.0); Mean Corp Hgb Conc. 35.6 g/dL (33.0-37.0); Mean Corpuscular Hgb 31.6 pg (27.0-31.0); Mean Corpuscular Volume 88.7 fL (81.0-99.0); Nucleated Red Blood Cells % 0 %; Platelet Count 176 10^3/uL (130-400); Red Blood Cell Count 4.43 10^6/uL (4.20-5.40); Red Cell Dist. Width 12.6 % (11.5-14.5); White Blood Cell Count 11.9 10^3/uL (4.8-10.8)
[2024-04-18 02:16] LABS: Troponin I < 0.012 ng/ml
[2024-04-18 02:19] LABS: Blood Urea Nitrogen 19 mg/dl (7-17); Calcium 8.7 mg/dl (8.4-10.2); Carbon Dioxide 23 mmol/L (22-30); Chloride 110 mmol/L (98-107); Estimated Creatinine Clearance 95 ml/min; Glucose 165 mg/dl (70-99); Potassium 4.5 mmol/L (3.5-5.1); Sodium 139 mmol/L (135-145); eGFR > 60.00
[2024-04-18 03:37] VITALS: BP 128/45
[2024-04-18 06:00] VITALS: BMI 36.0
[2024-04-18 07:45] VITALS: BP 125/66
[2024-04-18] MEDS: FOLVITE 0.800000000000000044 MG PO (08:42)
[2024-04-18] MEDS: VITAMIN D3 (cholecalciferol) 50 MCG PO (08:42)
[2024-04-18] MEDS: CLARITIN 10 MG PO (08:42)
[2024-04-18] MEDS: ZYLOPRIM 300 MG PO (08:42)
[2024-04-18] MEDS: OSCAL 500 + D 500 MG PO (08:42)
[2024-04-18] MEDS: THERAGRAN 1 TABLET PO (08:42)
[2024-04-18 08:49] LABS: Glycohemoglobin (HgbA1c) 5.9 % (4.0-5.6)
--- NOTE | 2024-04-18 09:10 | W.PN.HOSP.TC ---
Today's Communication/Plan
-
d/c
Assessment / Plan
Assessment / Plan
Gen: NAD, AAOx3.
Eyes: EOMI, PERRLA, no scleral icterus.
Neck: supple.
CV: RRR, +S1/S2, no m/r/g.
Resp: CTAB, no rales, wheezes, or rhonchi.
Abd: +BS, soft, NT, ND
Skin: No rashes.
Neuro: CN 2-12 intact, non-focal.
Psych: anxious
CXR: There is no acute cardiopulmonary process.
Hyponatremia:
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
-HCTZ stopped
-cont FR
-resolved
Hypokalemia:
-resolved with K repletion
-Mg normal
Chest pain:
-Patient reports this is associated with anxiety but is pressure-like
-Echo March 2024: EF 65-70%, mild concentric LVH, normal diastolic fxn, mild TR
-trop NEG x 3
-tele with SR/sinus tach
-Appreciate cardiology. Plan is for outpatient nuclear stress test.
Lymphoma:
-Patient received her first chemotherapy 04/16/24
-Dr. Mcintyre saw the pt today.
-Leukocytosis with left shift noted. No evidence of infection at this moment. Clear chest x-ray. Patient denies urinary symptoms. As per discussion with Dr. Forte, leukocytosis currently likely due to chemo 04/16/24. Improved to 11 without abx
-Patient reports she was supposed to get Neulasta 04/17/24
-follow BCxs
-cont allopurinol
Anxiety:
-appreciate psych
-Ativan PRN
Morbid obesity due to excess calories
FULL/Lovenox
Medically cleared for d/c.
Total time spent on d/c = 32 min. This included today's physical exam, progress note, review of laboratory and diagnostic data, preparation of discharge documents and prescriptions, and discussions about the pt's hospital course and discharge plan
with the patient and other curator medical museum involved in the patient's care.
Anticipated Discharge: Today
Subjective/Interval History
-
Date of Service: April 18, 2024
Patient complains of diarrhea.
Objective Data
-
Labs:
Laboratory Results
04/18/24
01:42
WBC 11.9 H
Hgb 14.0
Hct 39.3
Plt Count 176
Sodium 139 D
Potassium 4.5 D
Chloride 110 H
Carbon Dioxide 23
BUN 19 H
Creatinine 0.5 L
Glucose 165 H
Calcium 8.7
Vital Signs:
Vital Signs
Temp Pulse Resp BP Pulse Ox
97.8 F 79 18 125/66 96
04/18/24 07:45 04/18/24 07:45 04/18/24 07:45 04/18/24 07:45 04/18/24 07:45
I&O
04/17/24 04/18/24 04/19/24
06:59 06:59 06:59
Intake Total 0 / 0 1280 / 1280
Balance 0 / 0 1280 / 1280
--- NOTE | 2024-04-18 09:28 | W.PN.CARDCBS ---
Today's Communication / Plan
-
Troponins are negative and EKG stable.
Okay for discharge.
Will arrange outpatient nuclear stress test
Impression / Plan
-
PCP: Dr. Cantu
Cardiology: None prior to admission, initially seen by Dr. Bocanegra
Impression:
Presented w/ chest pain, SOB, nausea
Hypokalemia
Hyponatremia
Leukocytosis
Hypertension
Lymphoma - recently started chemo 04/16/2024
Rheumatoid arthritis
Polycythemia
CASSY
h/o DVT/PE post-op from back surgery
Insomnia
Lumbar spinal stenosis
Echo 03/12/2024: EF 65 to 70%, no RWMA, mild cLVH, GLS -19.9%, mild TR
Plan:
-No further chest pains and troponins are negative. EKG is stable. QTc improved
Okay for discharge and will arrange outpatient nuclear stress test.
-Blood pressure well-controlled. As outpatient is maintained on HCTZ 25 mg daily, hold for now with hyponatremia and hypokalemia.
HPI: Nancy is a 73-year-old female with past medical history of hypertension, lymphoma, rheumatoid arthritis, CASSY, prior DVT and PE, lumbar spinal stenosis, and insomnia who presented to ER for evaluation of chest pain, shortness of breath, and
tremors. She recently was diagnosed with lymphoma about a month ago. She states since her diagnosis that she has been having fairly frequent episodes of chest pain which she states are typically related to episodes of increased stress/anxiety.
Her pain is nonexertional in nature. She has not taken anything for the pain. She describes the pain as a pressure-like sensation along the left side of her chest. She started chemotherapy yesterday and had some pruritus and received Solu-Medrol
and Benadryl. She states this morning she woke up and felt terrible with her usual chest pain, however also had associated shortness of breath and severe nausea. She took a dose of Zofran which she states actually made her feel worse, prompting
emergency room evaluation. When she arrived to the emergency room, she was noted to have hyponatremia, hypokalemia, and leukocytosis. She has been admitted and cardiology consulted for evaluation of chest pain.
Progress Note - County Records Management Officer
Subjective
Date of Service: April 18, 2024
no new chest pain
Objective
Labs:
04/18/24 01:42
Labs
Hgb 14.0 g/dL (12.0-16.0) 04/18/24 01:42
Hct 39.3 % (37.0-47.0) 04/18/24 01:42
Plt Count 176 10^3/uL (130-400) 04/18/24 01:42
Sodium 139 mmol/L (135-145) D 04/18/24 01:42
Potassium 4.5 mmol/L (3.5-5.1) D 04/18/24 01:42
BUN 19 mg/dl (7-17) H 04/18/24 01:42
Creatinine 0.5 mg/dL (0.6-1.0) L 04/18/24 01:42
Glucose 165 mg/dl (70-99) H 04/18/24 01:42
Troponins
04/17/24 04/17/24 04/17/24
10:08 18:38 21:40
Troponin I < 0.012 < 0.012 Cancelled
04/17/24 04/18/24
22:17 01:42
Troponin I Cancelled < 0.012
Vital Signs and I&O:
Vital Signs
Temp Pulse Resp BP Pulse Ox
97.8 F 79 18 125/66 96
04/18/24 07:45 04/18/24 07:45 04/18/24 07:45 04/18/24 07:45 04/18/24 07:45
Vital Signs
Temp Pulse Resp BP Pulse Ox
97.8 F 79 18 125/66 96
04/18/24 07:45 04/18/24 07:45 04/18/24 07:45 04/18/24 07:45 04/18/24 07:45
Intake & Output
04/16/24 04/17/24 04/18/24 04/19/24
06:59 06:59 06:59 06:59
Intake Total 0 / 0 1280 / 1280
Balance 0 / 0 1280 / 1280
Physical Exam
Physical Exam
GEN: No distress, awake, Ox3
HEENT: supple, anicteric, mmm
LUNGS: CTA, no wheezes/rales
CV: Reg, S1/S2, 1/6 syst LSB, no gallop
ABD: soft, BS+, NT/ND
EXT: No edema
NEURO: Gross non-focal
SKIN: No rash
[2024-04-18] MEDS: ZOFRAN ODT (ORALLY DISINTEGRATING) 8 MG PO (10:03)
[2024-04-18] MEDS: ATIVAN 0.5 MG PO (10:04)
--- NOTE | 2024-04-18 10:33 | W.PN.UPDATE ---
Update Note
Progress Note Update
patient seen chart reviewed. discussed with nursing. mrs daniel is better today. certainly less anxious but she had an episode of explosive diarrhea and fears it happening again. suggested she wear a pull up until she feels confident of
continence. we talked about how understandable her anxiety is as she is facing very serious health issues. we agreed the only thing worse would be a child w a serious illness. she is likely leaving today. would dc her with ativan o.5 mg #30 . i
thinks she has ambien at home. also encouraged her if she feels the need to talk to someone for support. sometimes it is hard to talk to a family member no matter how supportive they are as they are struggling with their own anxiety about illness.
if she remains here will visit w her tomorrow.
[2024-04-18 10:50] LABS: Sodium 141 mmol/L (135-145)
[2024-04-18 11:20] VITALS: BP 123/66
--- NOTE | 2024-04-18 11:34 | W.PN.NEPH.PH ---
Today's Communication / Plan
-
see plan
Assessment/Plan
-
Assessment:
Rheumatoid arthritis
Diffuse large B-cell lymphoma status post R-CHOP 04/16/2024
Hyponatremia
hypokalemia
Hypertension
Plan:
Acute hyponatremia in setting of large amount of free water intake in short period of time
now improved back to 141, in acute setting correction seem to be fine
K replaced
no FR needed at d/c, repeat BMP next week
Discontinue hydrochlorothiazide permanently if blood pressure rises calcium channel dexter therapy or beta-dexter therapy may be used
Neupogen per oncology
d/c plan per primary
-
-
Date of Service: April 18, 2024
CC / HPI / ROS
-
Chief Complaint:
Hyponatremia
History of Present Illness:
sodium better at 141
Bp stable
no fever, WBC is high
Review of Systems:
no cp or sob
feels well
CHANEY resolved
Labs
-
Labs:
WBC 11.9 10^3/uL (4.8-10.8) H 04/18/24 01:42
RBC 4.43 10^6/uL (4.20-5.40) 04/18/24 01:42
Hgb 14.0 g/dL (12.0-16.0) 04/18/24 01:42
Hct 39.3 % (37.0-47.0) 04/18/24 01:42
Plt Count 176 10^3/uL (130-400) 04/18/24 01:42
Sodium 141 mmol/L (135-145) 04/18/24 10:15
Potassium 4.5 mmol/L (3.5-5.1) D 04/18/24 01:42
Chloride 110 mmol/L (98-107) H 04/18/24 01:42
Carbon Dioxide 23 mmol/L (22-30) 04/18/24 01:42
BUN 19 mg/dl (7-17) H 04/18/24 01:42
Creatinine 0.5 mg/dL (0.6-1.0) L 04/18/24 01:42
eGFR > 60.00 04/18/24 01:42
Glucose 165 mg/dl (70-99) H 04/18/24 01:42
Calcium 8.7 mg/dl (8.4-10.2) 04/18/24 01:42
Albumin 3.9 g/dl (3.5-5.0) 04/17/24 10:08
Physical Exam
-
Vital Signs:
Vital Signs
Temp Pulse Resp BP Pulse Ox
97.8 F 79 18 125/66 96
04/18/24 07:45 04/18/24 07:45 04/18/24 07:45 04/18/24 07:45 04/18/24 07:45
Cardiovascular:: Regular rate and rhythm
Respiratory:: Bilateral: CTA
Lung Excursion:: Normal
Abdomen:: Nontender and Soft
Extremity Edema:: None: Bilateral:
Lerner Catheter: No
[2024-04-18] MEDS: IMODIUM 2 MG PO (11:55)
--- NOTE | 2024-04-18 12:01 | CM ---
Addendum entered by Isabella Dill 04/18/24 12:18:
i explained imm letter and patient signed letter.
Original Note:
met with patient and her at bedside.patient lives in a single family dwelling with 1 eric,her bed and bath is on the first level,she amb i and is I with her adl.patient uses a cpap at night.her pcpis dr elke marinelli and she uses [facility] [address] in [place].she has no dme.
patient with a hx of large b cell lymphoma(recently started on chemo) is adm with chest pain.her ekg is stable and her trops negative per cardiology.patient is stable for dc home with no needs.she will need an op nuclear stress text. will
transport patient home.
--- NOTE | 2024-04-18 13:32 | W.DCSUMMARY ---
Discharge Summary
Discharge Data
Date of Admission: 04/17/24
Date of Discharge: 04/18/24
-
Pending Results: No
Hospital Course
Primary diagnoses:
Hyponatremia
Hypokalemia
Chest pain
Anxiety
Secondary diagnoses:
Morbid obesity due to excess calories
Lymphoma
Consultants:
Nephrology
Psychiatry
Oncology
Cardiology
Imaging:
CXR: There is no acute cardiopulmonary process.
Hospital course: 73-year-old female who was admitted yesterday due to hyponatremia and hypokalemia. She had multiple chief complaints on admission including chest pain, shortness of breath, tremors. Her sodium was 125 on admission. Her urine
studies were consistent with SIADH. Her hydrochlorothiazide was stopped. She was placed on a fluid restriction. Her hyponatremia resolved. Her hypokalemia resolved with potassium repletion. Her magnesium was normal. Regarding the patient's
chest pain, she reported this was associated with anxiety but was pressure-like. She had 3 negative troponins. Telemetry showed sinus rhythm and sinus tachycardia. She was seen in consultation by cardiology and the plan is for outpatient nuclear
stress testing. Regarding her anxiety use she was seen by psychiatry. She was started on Ativan as needed. She was discharged in medically stable condition.
Discharge Plan
-
Patient Disposition: Home (Routine Discharge)
Discharge Diagnosis/Procedures: Hyponatremia, hypokalemia, anxiety
Condition: Good
Diet: No restrictions
Activity: No restrictions
Driving Restrictions: As prior to admission
Bathing Restrictions: None
Blood Work: BMP and CBC in 1 week, script from PCP
Referrals:
Konrad Mcintyre, DO [Family Provider] - in less than 1 week
Prescriptions:
New
lorazepam [Ativan] 0.5 mg tablet
0.5 mg PO TID PRN (Reason: anxiety) Qty: 7 0RF
Continued
nystatin 100,000 unit/gram Cream
1 applic TOPICAL DAILYPRN PRN (Reason: skin issues)
zolpidem 10 mg Tablet
10 mg PO HSPRN PRN (Reason: insomnia)
calcium citrate 200 mg (950 mg) Tablet
200 mg PO DAILY
cholecalciferol (vitamin D3) [Vitamin D3] 50 mcg (2,000 unit) Capsule
50 mcg PO DAILY
folic acid 800 mcg Tablet
0.8 mg PO DAILY
therapeutic multivitamin Tablet
1 tab PO DAILY
ondansetron 8 mg Tablet,Disintegrating
8 mg PO Q8HPRN PRN (Reason: nausea)
lidocaine-prilocaine 2.5-2.5 % Cream
1 applic TOPICAL DAILYPRN PRN (Reason: apply to port before chemo)
prednisone 50 mg Tablet
50 mg PO UD
Rx Instructions:
take one day before chemo, then 5 days after
vincristine 1 mg/mL Solution
2 mg IV Q3W
Patient Comments:
next dose due 05/07/24
allopurinol 300 mg Tablet
300 mg PO DAILY
rituximab 10 mg/mL Concentrate
735 mg IV Q3W
Patient Comments:
next dose due 05/07/24
docusate sodium 100 mg Tablet
100 mg PO DAILYPRN PRN (Reason: constipation)
loratadine [Claritin] 10 mg Tablet
10 mg PO DAILY
doxorubicin 20 mg/10 mL Solution
98 mg IV Q3W
Patient Comments:
next dose due 05/07/24
eflapegrastim-xnst 13.2 mg/0.6 mL Syringe
13.2 mg SC UD
Patient Comments:
Patient due 04/17/24
Rx Instructions:
Given day after chemo
cyclophosphamide 100 mg/mL Solution
1,470 mg IV Q3W
Patient Comments:
next dose due 05/07/24
Discontinued
hydrochlorothiazide 25 mg Tablet
25 mg PO DAILY
Discharge Orders:
Discharge Patient (As Directed); Ordered 04/18/24
Ordered By: Vikas Lux
Discharge Date and Time
Print Language: NEPALI
== END 2024-04-18 14:24 | disposition home or self-care (01) | DRG 644 ==
LOC: 2 NORTH 14:29
PROVIDERS: Emergency Medicine; Internal Medicine; Nurse Practitioner Family; ADMITTING PHYSICIAN Internal Medicine; CONSULT PHYSICIAN Psychiatry & Neurology Psychiatry; EMERGENCY PHYSICIAN Emergency Medicine; FAMILY PHYSICIAN Internal Medicine Hematology & Oncology; OTHER PHYSICIAN Internal Medicine Cardiovascular Disease; OTHER PHYSICIAN Specialist
DX: E22.2 Syndrome of inappropriate secretion of antidiuretic hormone (principal); C83.30 Diffuse large B-cell lymphoma, unspecified site; E87.6 Hypokalemia; I10 Essential (primary) hypertension; M06.9 Rheumatoid arthritis, unspecified; M48.061 Spinal stenosis, lumbar region without neurogenic claudication; D75.1 Secondary polycythemia; R07.89 Other chest pain; G47.33 Obstructive sleep apnea (adult) (pediatric); G89.29 Other chronic pain; T45.1X5A Adverse effect of antineoplastic and immunosuppressive drugs, initial encounter; D72.828 Other elevated white blood cell count; R06.02 Shortness of breath; R19.7 Diarrhea, unspecified; E86.0 Dehydration; G47.00 Insomnia, unspecified; F41.9 Anxiety disorder, unspecified; E66.01 Morbid (severe) obesity due to excess calories; Z68.36 Body mass index [BMI] 36.0-36.9, adult; Z86.711 Personal history of pulmonary embolism; Z86.718 Personal history of other venous thrombosis and embolism; Z79.899 Other long term (current) drug therapy; Z91.041 Radiographic dye allergy status
CPT/HCPCS: 36415; 71046; 80048; 80053; 82784; 83036; 83521; 83735; 83930; 83935; 84155; 84165; 84295; 84300; 84484; 84550; 85025; 86140; 86334; 86704; 86706; 87040; 87340; 93005; 96365; 96366; 96375; 99285

== ENCOUNTER → 2024-04-22 10:15 | Outpatient (REF) | payer MEDICARE, SELFPAY ==
[2024-04-22 11:42] LABS: % Basophils 0.4 % (0-2); % Eosinophils 1.9 % (0-6); % Lymphocytes 26.6 % (20.5-51.1); % Monocytes 4.2 % (1.7-9.3); % Neutrophils 57.9 % (42.2-75.2); Absolute Eosinophils 0.2 10^3/uL (0-0.7); Absolute Immature Granulocytes 0.7 10^3/uL (0-0.05); Absolute Lymphocytes 2.2 10^3/uL (1.2-3.4); Absolute Monocytes 0.3 10^3/uL (0.1-0.6); Absolute Neutrophils 4.7 10^3/uL (1.4-6.5); Hematocrit 39.4 % (37.0-47.0); Hemoglobin 13.6 g/dL (12.0-16.0); Mean Corp Hgb Conc. 34.5 g/dL (33.0-37.0); Mean Corpuscular Hgb 30.8 pg (27.0-31.0); Mean Corpuscular Volume 89.1 fL (81.0-99.0); Mean Platelet Volume 10.1 fL (7.4-10.4); Nucleated Red Blood Cells % 0 %; Platelet Count 151 10^3/uL (130-400); Red Blood Cell Count 4.42 10^6/uL (4.20-5.40); Red Cell Dist. Width 13.1 % (11.5-14.5); White Blood Cell Count 8.1 10^3/uL (4.8-10.8)
[2024-04-22 12:23] LABS: ALT (SGPT) 109 U/L (0-35); AST (SGOT) 39 U/L (14-36); Alkaline Phosphatase 93 U/L (38-126); Blood Urea Nitrogen 18 mg/dl (7-17); Calcium 8.8 mg/dl (8.4-10.2); Carbon Dioxide 28 mmol/L (22-30); Chloride 104 mmol/L (98-107); Glucose 72 mg/dl (70-99); LDH 269 U/L (120-246); Potassium 3.6 mmol/L (3.5-5.1); Sodium 138 mmol/L (135-145); Total Protein 6.4 g/dl (6.3-8.2); Uric Acid 2.9 mg/dl (2.5-6.2); eGFR > 60.00
== END ==
LOC: HWLAB 10:15
PROVIDERS: ATTENDING PHYSICIAN Internal Medicine Hematology & Oncology; FAMILY PHYSICIAN Internal Medicine
DX: R71.8 Other abnormality of red blood cells (principal); R79.0 Abnormal level of blood mineral; I82.409 Acute embolism and thrombosis of unspecified deep veins of unspecified lower extremity; D75.1 Secondary polycythemia; C85.19 Unspecified B-cell lymphoma, extranodal and solid organ sites
CPT/HCPCS: 36415; 80053; 83615; 84550; 85025

== ENCOUNTER → 2024-04-29 11:34 | Outpatient (REF) | payer MEDICARE, SELFPAY ==
--- NOTE | 2024-04-29 12:39 | W.PN.UPDATE ---
Update Note
Progress Note Update
73 yo female presents for port site check. She had a right IJ port placed on 03/25/24. She notes that the venotomy site has always been sensitive but starting 04/26/24 she noticed increased redness and tenderness. She denies fever or chills. She was
seen by her oncologist and placed on Doxycycline. She has been taking that since Monday but notes progression of erythema and over the weekend developed a raised tender lump over the venotomy that had some spontaneous drainage. She was sent her for
evaluation
PE: The right anterior chest incision in CDI. Along the venotomy there is an area of erythema measuring 2 cm long by 1 cm wide. There are small pustules noted over a raised central area that is indurated to palpation. It is warm and tender to
touch
A/P: 73 yo female with concerns for cellulitis around the venotomy
She was started on Bactrim DS BID for 7 days
She was advised to call us on morning (05/02/24) to let us know if there has been any improvement or sooner if she develops fever or worsening erythema. If symptoms do worsen we recommend port removal and temporary placement
of a PICC with eventual replacement of the port.
Case reviewed with Dr. Flores
== END ==
LOC: RADI 11:34
PROVIDERS: ATTENDING PHYSICIAN Nurse Practitioner Adult Health; FAMILY PHYSICIAN Internal Medicine
DX: T80.212A Local infection due to central venous catheter, initial encounter (principal); L03.313 Cellulitis of chest wall; Y83.8 Other surgical procedures as the cause of abnormal reaction of the patient, or of later complication, without mention of misadventure at the time of the procedure

== ENCOUNTER → 2024-05-02 10:59 | Outpatient (REF) | payer MEDICARE, SELFPAY | LOC: DHCBC/DCA 10:59 | PROVIDERS: ATTENDING PHYSICIAN Internal Medicine Cardiovascular Disease; FAMILY PHYSICIAN Internal Medicine | DX: C85.90 Non-Hodgkin lymphoma, unspecified, unspecified site (principal); R07.89 Other chest pain; Z86.711 Personal history of pulmonary embolism; G47.33 Obstructive sleep apnea (adult) (pediatric); I10 Essential (primary) hypertension | CPT/HCPCS: 78452; 93017; A9500; J2785 ==

== ENCOUNTER → 2024-05-03 09:23 | Outpatient (REF) | payer MEDICARE, SELFPAY ==
[2024-05-03 10:39] VITALS: BP 123/73; BP_SYST 85
== END ==
LOC: RADI 09:23
PROVIDERS: ATTENDING PHYSICIAN Nurse Practitioner Adult Health
DX: T80.212A Local infection due to central venous catheter, initial encounter (principal); Y83.8 Other surgical procedures as the cause of abnormal reaction of the patient, or of later complication, without mention of misadventure at the time of the procedure; C85.19 Unspecified B-cell lymphoma, extranodal and solid organ sites
CPT/HCPCS: 36573; 36590; 77001; C1751

== ENCOUNTER → 2024-05-06 10:26 | Outpatient (REF) | payer MEDICARE, SELFPAY ==
[2024-05-06 11:27] LABS: % Basophils 0.8 % (0-2); % Eosinophils 0.5 % (0-6); % Immature Granulocytes 1.9 % (0-0.5); % Lymphocytes 8.8 % (20.5-51.1); % Monocytes 7.4 % (1.7-9.3); % Neutrophils 80.6 % (42.2-75.2); Absolute Basophils 0.2 10^3/uL (0-0.2); Absolute Eosinophils 0.1 10^3/uL (0-0.7); Absolute Immature Granulocytes 0.4 10^3/uL (0-0.05); Absolute Lymphocytes 1.9 10^3/uL (1.2-3.4); Absolute Monocytes 1.6 10^3/uL (0.1-0.6); Absolute Neutrophils 17.4 10^3/uL (1.4-6.5); Hematocrit 41.8 % (37.0-47.0); Hemoglobin 14.4 g/dL (12.0-16.0); Mean Corp Hgb Conc. 34.4 g/dL (33.0-37.0); Mean Corpuscular Hgb 30.9 pg (27.0-31.0); Mean Corpuscular Volume 89.7 fL (81.0-99.0); Nucleated Red Blood Cells % 0 %; Platelet Count 237 10^3/uL (130-400); Red Blood Cell Count 4.66 10^6/uL (4.20-5.40); Red Cell Dist. Width 14.2 % (11.5-14.5); White Blood Cell Count 21.5 10^3/uL (4.8-10.8)
[2024-05-06 11:42] LABS: ALT (SGPT) 23 U/L (0-35); AST (SGOT) 25 U/L (14-36); Albumin 4.5 g/dl (3.5-5.0); Alkaline Phosphatase 116 U/L (38-126); Blood Urea Nitrogen 11 mg/dl (7-17); Calcium 9.4 mg/dl (8.4-10.2); Carbon Dioxide 29 mmol/L (22-30); Chloride 100 mmol/L (98-107); Glucose 100 mg/dl (70-99); LDH 274 U/L (120-246); Potassium 3.9 mmol/L (3.5-5.1); Sodium 138 mmol/L (135-145); Total Bilirubin 0.4 mg/dl (0.2-1.3); Total Protein 6.7 g/dl (6.3-8.2); eGFR > 60.00
== END ==
LOC: HWLAB 10:26
PROVIDERS: ATTENDING PHYSICIAN Internal Medicine Hematology & Oncology; FAMILY PHYSICIAN Internal Medicine
DX: R71.8 Other abnormality of red blood cells (principal); R79.0 Abnormal level of blood mineral; I82.409 Acute embolism and thrombosis of unspecified deep veins of unspecified lower extremity; C82.19 Follicular lymphoma grade II, extranodal and solid organ sites; D75.1 Secondary polycythemia
CPT/HCPCS: 36415; 80053; 83615; 85025

== ENCOUNTER → 2024-05-27 09:11 | Outpatient (REF) | payer MEDICARE, SELFPAY ==
[2024-05-27 11:38] LABS: % Basophils 0.9 % (0-2); % Eosinophils 1.1 % (0-6); % Lymphocytes 7.9 % (20.5-51.1); % Neutrophils 77.1 % (42.2-75.2); Absolute Basophils 0.2 10^3/uL (0-0.2); Absolute Eosinophils 0.2 10^3/uL (0-0.7); Absolute Immature Granulocytes 0.4 10^3/uL (0-0.05); Absolute Lymphocytes 1.5 10^3/uL (1.2-3.4); Absolute Monocytes 2.1 10^3/uL (0.1-0.6); Absolute Neutrophils 14.8 10^3/uL (1.4-6.5); Hematocrit 37.2 % (37.0-47.0); Hemoglobin 12.8 g/dL (12.0-16.0); Mean Corp Hgb Conc. 34.4 g/dL (33.0-37.0); Mean Corpuscular Hgb 31.1 pg (27.0-31.0); Mean Corpuscular Volume 90.3 fL (81.0-99.0); Mean Platelet Volume 10.2 fL (7.4-10.4); Nucleated Red Blood Cells % 0.2 %; Platelet Count 183 10^3/uL (130-400); Red Blood Cell Count 4.12 10^6/uL (4.20-5.40); Red Cell Dist. Width 15.8 % (11.5-14.5); White Blood Cell Count 19.2 10^3/uL (4.8-10.8)
[2024-05-27 11:47] LABS: ALT (SGPT) 27 U/L (0-35); AST (SGOT) 28 U/L (14-36); Alkaline Phosphatase 122 U/L (38-126); Blood Urea Nitrogen 15 mg/dl (7-17); Carbon Dioxide 29 mmol/L (22-30); Chloride 104 mmol/L (98-107); Glucose 103 mg/dl (70-99); Potassium 3.9 mmol/L (3.5-5.1); Sodium 139 mmol/L (135-145); Total Bilirubin 0.3 mg/dl (0.2-1.3); Total Protein 6.2 g/dl (6.3-8.2); eGFR > 60.00
== END ==
LOC: HWLAB 09:11
PROVIDERS: ATTENDING PHYSICIAN Internal Medicine Hematology & Oncology; FAMILY PHYSICIAN Internal Medicine
DX: R71.8 Other abnormality of red blood cells (principal); R79.0 Abnormal level of blood mineral; I82.409 Acute embolism and thrombosis of unspecified deep veins of unspecified lower extremity; D75.1 Secondary polycythemia; C85.19 Unspecified B-cell lymphoma, extranodal and solid organ sites
CPT/HCPCS: 36415; 80053; 85025

== ENCOUNTER → 2024-06-12 18:08 | Outpatient (REF) | payer MEDICARE, SELFPAY | LOC: RCS 18:08 | PROVIDERS: ATTENDING PHYSICIAN Internal Medicine Hematology & Oncology; FAMILY PHYSICIAN Internal Medicine | DX: Z79.899 Other long term (current) drug therapy (principal); C85.19 Unspecified B-cell lymphoma, extranodal and solid organ sites; D75.1 Secondary polycythemia | CPT/HCPCS: 93306; 93356 ==

== ENCOUNTER → 2024-06-18 08:33 | Outpatient (REF) | payer MEDICARE, SELFPAY ==
[2024-06-18 10:00] LABS: % Immature Granulocytes 1.5 % (0-0.5); % Lymphocytes 10.1 % (20.5-51.1); % Monocytes 10.7 % (1.7-9.3); % Neutrophils 75.7 % (42.2-75.2); Absolute Basophils 0.2 10^3/uL (0-0.2); Absolute Eosinophils 0.2 10^3/uL (0-0.7); Absolute Immature Granulocytes 0.2 10^3/uL (0-0.05); Absolute Lymphocytes 1.5 10^3/uL (1.2-3.4); Absolute Monocytes 1.6 10^3/uL (0.1-0.6); Absolute Neutrophils 11.6 10^3/uL (1.4-6.5); Hematocrit 38.6 % (37.0-47.0); Hemoglobin 12.9 g/dL (12.0-16.0); Mean Corp Hgb Conc. 33.4 g/dL (33.0-37.0); Mean Corpuscular Hgb 31.1 pg (27.0-31.0); Mean Platelet Volume 10.2 fL (7.4-10.4); Nucleated Red Blood Cells % 0 %; Platelet Count 163 10^3/uL (130-400); Red Blood Cell Count 4.15 10^6/uL (4.20-5.40); Red Cell Dist. Width 17.6 % (11.5-14.5); White Blood Cell Count 15.3 10^3/uL (4.8-10.8)
[2024-06-18 10:25] LABS: ALT (SGPT) 28 U/L (0-35); AST (SGOT) 27 U/L (14-36); Albumin 4.3 g/dl (3.5-5.0); Alkaline Phosphatase 113 U/L (38-126); Blood Urea Nitrogen 15 mg/dl (7-17); Calcium 9.1 mg/dl (8.4-10.2); Carbon Dioxide 28 mmol/L (22-30); Chloride 105 mmol/L (98-107); Glucose 107 mg/dl (70-99); Sodium 140 mmol/L (135-145); Total Bilirubin 0.4 mg/dl (0.2-1.3); Total Protein 6.1 g/dl (6.3-8.2); eGFR > 60.00
== END ==
LOC: HWLAB 08:33
PROVIDERS: ATTENDING PHYSICIAN Internal Medicine Hematology & Oncology; FAMILY PHYSICIAN Internal Medicine; REFERRING PHYSICIAN Internal Medicine Rheumatology
DX: R71.8 Other abnormality of red blood cells (principal); R79.0 Abnormal level of blood mineral; I82.409 Acute embolism and thrombosis of unspecified deep veins of unspecified lower extremity; D75.1 Secondary polycythemia; C85.19 Unspecified B-cell lymphoma, extranodal and solid organ sites
CPT/HCPCS: 36415; 80053; 85025

== ENCOUNTER → 2024-07-10 07:48 | Outpatient (REF) | payer MEDICARE, SELFPAY ==
[2024-07-10 10:01] LABS: % Basophils 1.3 % (0-2); % Eosinophils 15.2 % (0-6); % Immature Granulocytes 0.3 % (0-0.5); % Lymphocytes 14.8 % (20.5-51.1); % Monocytes 9.2 % (1.7-9.3); % Neutrophils 59.2 % (42.2-75.2); Absolute Basophils 0.1 10^3/uL (0-0.2); Absolute Eosinophils 1.1 10^3/uL (0-0.7); Absolute Lymphocytes 1.1 10^3/uL (1.2-3.4); Absolute Monocytes 0.7 10^3/uL (0.1-0.6); Absolute Neutrophils 4.5 10^3/uL (1.4-6.5); Hematocrit 40.3 % (37.0-47.0); Hemoglobin 13.8 g/dL (12.0-16.0); Mean Corp Hgb Conc. 34.2 g/dL (33.0-37.0); Mean Corpuscular Hgb 32.6 pg (27.0-31.0); Mean Corpuscular Volume 95.3 fL (81.0-99.0); Mean Platelet Volume 10.1 fL (7.4-10.4); Nucleated Red Blood Cells % 0 %; Platelet Count 157 10^3/uL (130-400); Red Blood Cell Count 4.23 10^6/uL (4.20-5.40); Red Cell Dist. Width 15.6 % (11.5-14.5); White Blood Cell Count 7.5 10^3/uL (4.8-10.8)
[2024-07-10 11:07] LABS: ALT (SGPT) 29 U/L (0-35); AST (SGOT) 32 U/L (14-36); Albumin 4.2 g/dl (3.5-5.0); Alkaline Phosphatase 80 U/L (38-126); Blood Urea Nitrogen 17 mg/dl (7-17); Calcium 9.3 mg/dl (8.4-10.2); Carbon Dioxide 28 mmol/L (22-30); Chloride 104 mmol/L (98-107); Glucose 107 mg/dl (70-99); Potassium 4.2 mmol/L (3.5-5.1); Sodium 143 mmol/L (135-145); Total Bilirubin 0.5 mg/dl (0.2-1.3); Total Protein 6.3 g/dl (6.3-8.2); eGFR > 60.00
== END ==
LOC: HWLAB 07:48
PROVIDERS: ATTENDING PHYSICIAN Internal Medicine Hematology & Oncology; FAMILY PHYSICIAN Internal Medicine; REFERRING PHYSICIAN Internal Medicine Rheumatology
DX: R71.8 Other abnormality of red blood cells (principal); R79.0 Abnormal level of blood mineral; I82.409 Acute embolism and thrombosis of unspecified deep veins of unspecified lower extremity; D75.1 Secondary polycythemia; C85.19 Unspecified B-cell lymphoma, extranodal and solid organ sites
CPT/HCPCS: 36415; 80053; 85025

== ENCOUNTER → 2024-08-01 08:58 | Outpatient (REF) | payer MEDICARE, SELFPAY ==
[2024-08-01 12:30] LABS: % Eosinophils 10.9 % (0-6); % Immature Granulocytes 0.2 % (0-0.5); % Lymphocytes 18.2 % (20.5-51.1); % Monocytes 10.9 % (1.7-9.3); % Neutrophils 58.8 % (42.2-75.2); Absolute Basophils 0.1 10^3/uL (0-0.2); Absolute Eosinophils 0.7 10^3/uL (0-0.7); Absolute Lymphocytes 1.1 10^3/uL (1.2-3.4); Absolute Monocytes 0.7 10^3/uL (0.1-0.6); Absolute Neutrophils 3.5 10^3/uL (1.4-6.5); Hematocrit 40.5 % (37.0-47.0); Mean Corp Hgb Conc. 34.6 g/dL (33.0-37.0); Mean Corpuscular Hgb 31.6 pg (27.0-31.0); Mean Corpuscular Volume 91.4 fL (81.0-99.0); Mean Platelet Volume 10.5 fL (7.4-10.4); Nucleated Red Blood Cells % 0 %; Platelet Count 190 10^3/uL (130-400); Red Blood Cell Count 4.43 10^6/uL (4.20-5.40); Red Cell Dist. Width 13.2 % (11.5-14.5); White Blood Cell Count 5.9 10^3/uL (4.8-10.8)
[2024-08-01 12:37] LABS: ALT (SGPT) 31 U/L (0-35); AST (SGOT) 32 U/L (14-36); Albumin 4.3 g/dl (3.5-5.0); Alkaline Phosphatase 97 U/L (38-126); Blood Urea Nitrogen 17 mg/dl (7-17); Calcium 8.8 mg/dl (8.4-10.2); Carbon Dioxide 26 mmol/L (22-30); Chloride 105 mmol/L (98-107); Glucose 106 mg/dl (70-99); Potassium 4.1 mmol/L (3.5-5.1); Sodium 142 mmol/L (135-145); Total Bilirubin 0.3 mg/dl (0.2-1.3); Total Protein 6.4 g/dl (6.3-8.2); eGFR > 60.00
== END ==
LOC: HWLAB 08:58
PROVIDERS: ATTENDING PHYSICIAN Internal Medicine Hematology & Oncology; FAMILY PHYSICIAN Internal Medicine; REFERRING PHYSICIAN Internal Medicine Rheumatology
DX: R71.8 Other abnormality of red blood cells (principal); R79.0 Abnormal level of blood mineral; I82.409 Acute embolism and thrombosis of unspecified deep veins of unspecified lower extremity; D75.1 Secondary polycythemia; C85.19 Unspecified B-cell lymphoma, extranodal and solid organ sites
CPT/HCPCS: 36415; 80053; 85025

== ENCOUNTER → 2024-08-23 08:39 | Outpatient (REF) | payer MEDICARE, SELFPAY ==
[2024-08-23 12:53] LABS: % Basophils 1.2 % (0-2); % Lymphocytes 22.6 % (20.5-51.1); % Monocytes 12.2 % (1.7-9.3); Absolute Basophils 0.1 10^3/uL (0-0.2); Absolute Eosinophils 0.5 10^3/uL (0-0.7); Absolute Lymphocytes 1.2 10^3/uL (1.2-3.4); Absolute Monocytes 0.6 10^3/uL (0.1-0.6); Absolute Neutrophils 2.8 10^3/uL (1.4-6.5); Hematocrit 42.3 % (37.0-47.0); Hemoglobin 14.4 g/dL (12.0-16.0); Mean Corpuscular Hgb 31.1 pg (27.0-31.0); Mean Corpuscular Volume 91.4 fL (81.0-99.0); Mean Platelet Volume 10.2 fL (7.4-10.4); Nucleated Red Blood Cells % 0 %; Platelet Count 179 10^3/uL (130-400); Red Blood Cell Count 4.63 10^6/uL (4.20-5.40); Red Cell Dist. Width 12.5 % (11.5-14.5); White Blood Cell Count 5.1 10^3/uL (4.8-10.8)
[2024-08-23 13:08] LABS: ALT (SGPT) 29 U/L (0-35); AST (SGOT) 36 U/L (14-36); Albumin 4.4 g/dl (3.5-5.0); Alkaline Phosphatase 86 U/L (38-126); Blood Urea Nitrogen 19 mg/dl (7-17); Calcium 9.2 mg/dl (8.4-10.2); Carbon Dioxide 28 mmol/L (22-30); Chloride 103 mmol/L (98-107); Glucose 104 mg/dl (70-99); Potassium 4.3 mmol/L (3.5-5.1); Sodium 143 mmol/L (135-145); Total Bilirubin 0.4 mg/dl (0.2-1.3); Total Protein 6.6 g/dl (6.3-8.2); eGFR > 60.00
== END ==
LOC: HWLAB 08:39
PROVIDERS: ATTENDING PHYSICIAN Internal Medicine Hematology & Oncology; FAMILY PHYSICIAN Internal Medicine; REFERRING PHYSICIAN Internal Medicine Rheumatology
DX: R71.8 Other abnormality of red blood cells (principal); R79.0 Abnormal level of blood mineral; I82.409 Acute embolism and thrombosis of unspecified deep veins of unspecified lower extremity; D75.1 Secondary polycythemia; C85.19 Unspecified B-cell lymphoma, extranodal and solid organ sites
CPT/HCPCS: 36415; 80053; 85025

== ENCOUNTER → 2024-09-05 14:16 | Outpatient (REF) | payer MEDICARE, SELFPAY | LOC: HWWDC 14:16 | PROVIDERS: ATTENDING PHYSICIAN Internal Medicine; OTHER PHYSICIAN Internal Medicine Hematology & Oncology; REFERRING PHYSICIAN Internal Medicine Rheumatology | DX: Z12.31 Encounter for screening mammogram for malignant neoplasm of breast (principal) | CPT/HCPCS: 77063; 77067 ==

== ENCOUNTER → 2024-09-16 09:07 | Outpatient (REF) | payer MEDICARE, SELFPAY ==
[2024-09-16 11:51] LABS: % Basophils 1.5 % (0-2); % Eosinophils 5.5 % (0-6); % Immature Granulocytes 0.2 % (0-0.5); % Lymphocytes 28.1 % (20.5-51.1); % Monocytes 15.4 % (1.7-9.3); % Neutrophils 49.3 % (42.2-75.2); Absolute Basophils 0.1 10^3/uL (0-0.2); Absolute Eosinophils 0.3 10^3/uL (0-0.7); Absolute Lymphocytes 1.3 10^3/uL (1.2-3.4); Absolute Monocytes 0.7 10^3/uL (0.1-0.6); Absolute Neutrophils 2.3 10^3/uL (1.4-6.5); Hematocrit 45.1 % (37.0-47.0); Hemoglobin 15.3 g/dL (12.0-16.0); Mean Corp Hgb Conc. 33.9 g/dL (33.0-37.0); Mean Corpuscular Hgb 30.9 pg (27.0-31.0); Mean Corpuscular Volume 91.1 fL (81.0-99.0); Mean Platelet Volume 9.9 fL (7.4-10.4); Nucleated Red Blood Cells % 0 %; Platelet Count 173 10^3/uL (130-400); Red Blood Cell Count 4.95 10^6/uL (4.20-5.40); Red Cell Dist. Width 12.2 % (11.5-14.5); White Blood Cell Count 4.7 10^3/uL (4.8-10.8)
[2024-09-16 12:03] LABS: ALT (SGPT) 30 U/L (0-35); AST (SGOT) 31 U/L (14-36); Albumin 4.3 g/dl (3.5-5.0); Alkaline Phosphatase 86 U/L (38-126); Blood Urea Nitrogen 18 mg/dl (7-17); Carbon Dioxide 26 mmol/L (22-30); Chloride 103 mmol/L (98-107); Glucose 113 mg/dl (70-99); Potassium 4.2 mmol/L (3.5-5.1); Sodium 141 mmol/L (135-145); Total Bilirubin 0.3 mg/dl (0.2-1.3); Total Protein 6.6 g/dl (6.3-8.2); eGFR > 60.00
[2024-09-16 12:25] LABS: Vitamin D, 25-OH*** 51.5 ng/mL (30-80)
[2024-09-16 18:26] LABS: Hepatitis B Surface Antigen Negative (Negative)
[2024-09-16 18:44] LABS: Hepatitis B Core Ab, Total Negative (Negative); Hepatitis C Antibody Negative (Negative)
[2024-09-18 09:10] LABS: Quantiferon Mitogen minus NIL 9.98 IU/mL; Quantiferon NIL 0.02 IU/mL; Quantiferon Plus TB2 minus NIL 0.01 IU/mL (<=0.34); Quantiferon TB Gold Plus Negative (Negative)
== END ==
LOC: HWLAB 09:07
PROVIDERS: ATTENDING PHYSICIAN Internal Medicine Rheumatology; FAMILY PHYSICIAN Internal Medicine; REFERRING PHYSICIAN Internal Medicine Hematology & Oncology
DX: C83.30 Diffuse large B-cell lymphoma, unspecified site (principal); E55.9 Vitamin D deficiency, unspecified; M05.79 Rheumatoid arthritis with rheumatoid factor of multiple sites without organ or systems involvement; M35.00 Sjogren syndrome, unspecified; Z11.1 Encounter for screening for respiratory tuberculosis; Z11.59 Encounter for screening for other viral diseases; Z51.81 Encounter for therapeutic drug level monitoring
CPT/HCPCS: 36415; 80053; 82306; 85025; 86140; 86480; 86704; 86803; 87340

== ENCOUNTER → 2024-11-20 12:56 | Outpatient (REF) | payer MEDICARE, SELFPAY | LOC: HWRAD 12:56 | PROVIDERS: ATTENDING PHYSICIAN Internal Medicine Rheumatology; FAMILY PHYSICIAN Internal Medicine; REFERRING PHYSICIAN Internal Medicine Hematology & Oncology | DX: M81.0 Age-related osteoporosis without current pathological fracture (principal) | CPT/HCPCS: 77080 ==

== ENCOUNTER → 2024-11-27 09:50 | Outpatient (REF) | payer MEDICARE, SELFPAY ==
[2024-11-27 11:12] LABS: % Basophils 0.7 % (0-2); % Immature Granulocytes 0.2 % (0-0.5); % Monocytes 11.2 % (1.7-9.3); % Neutrophils 61.9 % (42.2-75.2); Absolute Eosinophils 0.3 10^3/uL (0-0.7); Absolute Lymphocytes 1.2 10^3/uL (1.2-3.4); Absolute Monocytes 0.7 10^3/uL (0.1-0.6); Absolute Neutrophils 3.6 10^3/uL (1.4-6.5); Hematocrit 45.1 % (37.0-47.0); Hemoglobin 14.7 g/dL (12.0-16.0); Mean Corp Hgb Conc. 32.6 g/dL (33.0-37.0); Mean Corpuscular Hgb 29.9 pg (27.0-31.0); Mean Corpuscular Volume 91.7 fL (81.0-99.0); Mean Platelet Volume 10.1 fL (7.4-10.4); Nucleated Red Blood Cells % 0 %; Platelet Count 168 10^3/uL (130-400); Red Blood Cell Count 4.92 10^6/uL (4.20-5.40); Red Cell Dist. Width 13.6 % (11.5-14.5); White Blood Cell Count 5.8 10^3/uL (4.8-10.8)
[2024-11-27 12:34] LABS: ALT (SGPT) 32 U/L (0-35); AST (SGOT) 32 U/L (14-36); Albumin 4.2 g/dl (3.5-5.0); Alkaline Phosphatase 107 U/L (38-126); Blood Urea Nitrogen 17 mg/dl (7-17); Calcium 8.5 mg/dl (8.4-10.2); Carbon Dioxide 26 mmol/L (22-30); Chloride 105 mmol/L (98-107); Glucose 100 mg/dl (70-99); Potassium 4.4 mmol/L (3.5-5.1); Sodium 139 mmol/L (135-145); Total Bilirubin 0.3 mg/dl (0.2-1.3); Total Protein 6.4 g/dl (6.3-8.2); eGFR > 60.00
== END ==
LOC: HWLAB 09:50
PROVIDERS: ATTENDING PHYSICIAN Internal Medicine Hematology & Oncology; FAMILY PHYSICIAN Internal Medicine; REFERRING PHYSICIAN Internal Medicine Rheumatology
DX: R71.8 Other abnormality of red blood cells (principal); R79.0 Abnormal level of blood mineral; I82.409 Acute embolism and thrombosis of unspecified deep veins of unspecified lower extremity; D75.1 Secondary polycythemia; C85.19 Unspecified B-cell lymphoma, extranodal and solid organ sites
CPT/HCPCS: 36415; 80053; 85025

== ENCOUNTER → 2025-03-03 11:08 | Outpatient (REF) | payer MEDICARE, SELFPAY ==
[2025-03-03 16:09] LABS: ALT (SGPT) 24 U/L (0-35); AST (SGOT) 28 U/L (14-36); Albumin 4.1 g/dl (3.5-5.0); Alkaline Phosphatase 81 U/L (38-126); Blood Urea Nitrogen 17 mg/dl (7-17); Calcium 9.4 mg/dl (8.4-10.2); Carbon Dioxide 28 mmol/L (22-30); Chloride 107 mmol/L (98-107); Glucose 114 mg/dl (70-99); LDH 231 U/L (120-246); Potassium 4.1 mmol/L (3.5-5.1); Sodium 141 mmol/L (135-145); Total Bilirubin 0.6 mg/dl (0.2-1.3); Total Protein 6.4 g/dl (6.3-8.2); eGFR > 60.00
[2025-03-03 16:59] LABS: % Basophils 0.9 % (0-2); % Eosinophils 3.6 % (0-6); % Immature Granulocytes 0.1 % (0-0.5); % Lymphocytes 16.5 % (20.5-51.1); % Monocytes 10.4 % (1.7-9.3); % Neutrophils 68.5 % (42.2-75.2); Absolute Basophils 0.1 10^3/uL (0-0.2); Absolute Eosinophils 0.2 10^3/uL (0-0.7); Absolute Lymphocytes 1.1 10^3/uL (1.2-3.4); Absolute Monocytes 0.7 10^3/uL (0.1-0.6); Absolute Neutrophils 4.6 10^3/uL (1.4-6.5); Hematocrit 44.2 % (37.0-47.0); Hemoglobin 14.9 g/dL (12.0-16.0); Mean Corp Hgb Conc. 33.7 g/dL (33.0-37.0); Mean Corpuscular Hgb 30.8 pg (27.0-31.0); Mean Corpuscular Volume 91.5 fL (81.0-99.0); Mean Platelet Volume 10.7 fL (7.4-10.4); Nucleated Red Blood Cells % 0 %; Platelet Count 184 10^3/uL (130-400); Red Blood Cell Count 4.83 10^6/uL (4.20-5.40); Red Cell Dist. Width 13.5 % (11.5-14.5); White Blood Cell Count 6.7 10^3/uL (4.8-10.8)
== END ==
LOC: HWLAB 11:08
PROVIDERS: ATTENDING PHYSICIAN Internal Medicine Rheumatology; FAMILY PHYSICIAN Internal Medicine; REFERRING PHYSICIAN Internal Medicine Hematology & Oncology
DX: C83.30 Diffuse large B-cell lymphoma, unspecified site (principal); E55.9 Vitamin D deficiency, unspecified; G47.30 Sleep apnea, unspecified; M05.79 Rheumatoid arthritis with rheumatoid factor of multiple sites without organ or systems involvement; M35.00 Sjogren syndrome, unspecified; M50.90 Cervical disc disorder, unspecified, unspecified cervical region; M79.671 Pain in right foot; M81.0 Age-related osteoporosis without current pathological fracture; Z11.1 Encounter for screening for respiratory tuberculosis; Z11.59 Encounter for screening for other viral diseases; Z13.820 Encounter for screening for osteoporosis; Z51.81 Encounter for therapeutic drug level monitoring; Z68.37 Body mass index [BMI] 37.0-37.9, adult; R71.8 Other abnormality of red blood cells; R79.0 Abnormal level of blood mineral; I82.409 Acute embolism and thrombosis of unspecified deep veins of unspecified lower extremity; D75.1 Secondary polycythemia; C85.19 Unspecified B-cell lymphoma, extranodal and solid organ sites
CPT/HCPCS: 36415; 80053; 83615; 85025; 86140

== ENCOUNTER 2025-03-06 14:44 | Inpatient (IN) | payer MEDICARE, SELFPAY ==
[2025-03-06] VITALS (11 sets, daily range): BP systolic 115–170; BP diastolic 67–90; BMI 40.7; BMI 38.7
[2025-03-06] MEDS: PEPCID 20 MG IV ×2 (11:44→20:27)
[2025-03-06] MEDS: LASIX 20 MG IV (11:55)
[2025-03-06 12:12] LABS: % Basophils 0.4 % (0-2); % Eosinophils 2.4 % (0-6); % Immature Granulocytes 0.3 % (0-0.5); % Lymphocytes 34.4 % (20.5-51.1); % Monocytes 8.8 % (1.7-9.3); % Neutrophils 53.7 % (42.2-75.2); Absolute Eosinophils 0.2 10^3/uL (0-0.7); Absolute Lymphocytes 2.3 10^3/uL (1.2-3.4); Absolute Monocytes 0.6 10^3/uL (0.1-0.6); Absolute Neutrophils 3.6 10^3/uL (1.4-6.5); Hematocrit 47.6 % (37.0-47.0); Hemoglobin 16.6 g/dL (12.0-16.0); Mean Corp Hgb Conc. 34.9 g/dL (33.0-37.0); Mean Corpuscular Hgb 31.1 pg (27.0-31.0); Mean Corpuscular Volume 89.3 fL (81.0-99.0); Mean Platelet Volume 10.2 fL (7.4-10.4); Nucleated Red Blood Cells % 0 %; Platelet Count 195 10^3/uL (130-400); Red Blood Cell Count 5.33 10^6/uL (4.20-5.40); Red Cell Dist. Width 13.4 % (11.5-14.5); White Blood Cell Count 6.7 10^3/uL (4.8-10.8)
[2025-03-06 12:13] LABS: ALT (SGPT) 30 U/L (0-35); AST (SGOT) 32 U/L (14-36); Albumin 4.2 g/dl (3.5-5.0); Alkaline Phosphatase 86 U/L (38-126); Blood Urea Nitrogen 11 mg/dl (7-17); Calcium 8.9 mg/dl (8.4-10.2); Carbon Dioxide 25 mmol/L (22-30); Chloride 105 mmol/L (98-107); Estimated Creatinine Clearance 96 ml/min; Glucose 149 mg/dl (70-99); Magnesium 2.4 mg/dl (1.6-2.3); Potassium 3.9 mmol/L (3.5-5.1); Sodium 140 mmol/L (135-145); Total Bilirubin 0.6 mg/dl (0.2-1.3); Total Protein 6.3 g/dl (6.3-8.2); eGFR > 60.00
[2025-03-06 12:14] LABS: D-Dimer 2.74 ug/mlFEU (0.00-0.50)
[2025-03-06 12:24] LABS: NT-proBNP 21.7 pg/ml; Troponin I < 0.012 ng/ml
[2025-03-06] MEDS: VENTOLIN NEBULES 2.5 MG INH (13:20)
--- NOTE | 2025-03-06 13:44 | ED.GENMED ---
History of Present Illness
General
Chief Complaint: Allergic Reaction
Source: patient
Exam Limitations: none
Time Seen by Provider: 03/06/25 11:45
Nursing documentation reviewed up to this point in time: agreed with
History of Present Illness
History of Present Illness:
Patient presents to ED secondary to sudden onset of shortness of breath after coughing spells, when she walked outside, shortly prior to arrival. Patient reports throat swelling/closing sensation. Denies chest pain. Denies dizziness. Denies
nausea or vomiting. Patient also reports itching sensation in her arms and chest. 911 was dispatched to patient's house. When arrived at scene, paramedics found the patient with urticaria, in significant respiratory distress. Patient was not
hypoxic however. Patient was given epi injection in her thigh, along with nebulizer treatment, Solu-Medrol, and magnesium. As her symptoms did not improve significantly, after speaking with myself, patient was given 1 additional dose of epi
injection, in route to the hospital. Upon arrival, patient reports mild improvement symptoms, with resolution of rash. However, patient is still complaining of shortness of breath with throat swelling sensation. Patient does have history of
peanut allergy. Patient states that she had similar symptoms at that time, but not as severe. Patient was having bananas and drinking Mountain Dew, when she walked outside.
Past History
Past History
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
ED Past Surgical History: Orthopedic and Tonsilectomy
Social History
Tobacco: Non-smoker
Review of Systems
Review of Systems
Allergies reviewed?: Yes
All Other Systems: ROS reviewed and negative except as documented in HPI and ROS
Constitutional: Reports no symptoms
EENT: Reports other (throat swelling)
Respiratory: Reports trouble breathing
Cardiac: Reports no symptoms
ABD/GI: Reports no symptoms
Skin: Reports no symptoms
Neurological: Reports no symptoms
Phy Exam
Physical Exam
Physical Exam:
Physical Exam
General: mild respiratory distress, not acutely ill. afebrile.
Head: nc/at. eomi
Neck: supple. no jvd. normal posterior pharynx
Heart: tachycardic, no murmur.
Lungs: moderate respiratory distress. expiratory wheezing bilaterally
Abdomen: normal bowel sounds. not tender.
Neuro: alert and oriented x 3. no focal neurological deficits
Skin: no rash
Psychiatric: well kept. interactive and cooperative
Extremities: no edema. no calf tenderness.
Course
Orders/Labs/Results
Orders:
Orders
03/06/25 11:43
Famotidine [Pepcid] 20 mg IV NOW STA
03/06/25 11:45
Electrocardiogram (*1) Urgent
Reason for Study: Shortness of Breath
EKG- Treatment ONCE
CR Chest Portable - 1 View Urgent
Comment:
Reason For Exam: sob
Reason Study Needs to be Portable: Patient Unstable
03/06/25 11:51
Furosemide [Lasix] 20 mg IV NOW STA
03/06/25 11:53
Complete Blood Count/With Diff Urgent
Comprehensive Metabolic Panel Urgent
D-Dimer Urgent
Magnesium Urgent
NT-proBNP Urgent
Troponin I Urgent
03/06/25 13:17
Albuterol Nebs [Ventolin Nebules] 2.5 mg INH R NOW STA
03/06/25 14:37
Admit/Transfer Patient As Directed
Co-Sign Provider:
Level of Care: Inpatient admission
Assign to:: Telemetry
Physician / Group: paola
Diagnosis: anaphylaxis
Reason for Telemetry: Arrhythmia
Date to Stop Telemetry: 03/09/25
Time to Stop Telemetry: 11:00
Reason for Hospitalization: anaphylaxis
Expected length of stay greater than two midnights?: Yes
ELOS- Estimated Length of Stay in days: 2
I certify the patient meets the requirements for IP care: Yes
PRN Pain Medication Management As Directed
May give lesser potent ordered pain med per pt: Yes
preference::
Protocol:: Medication orders for pain may be administered in a
manner that supports deferring to patient preference
when the pt is:
- Requesting an ordered lesser potent pain medication.
Least to most potent pain medications are defined
as: acetaminophen < NSAID < tramadol < opioids
(morphine, oxycodone, hydromorphone).
- Requesting a lesser dose of the same medication IF
ORDERED.
- Requesting a less intrusive route of administration
if both routes are prescribed by the provider (PO <
IV).
03/06/25 14:38
Code Status As Directed
Resuscitation Status: Full Code
03/06/25 14:43
Abdomen Xray - 1 View [CR Abdomen - 1 View] Urgent
Comment:
Reason For Exam: abdomimal pain
03/06/25 Dinner
Regular
At Your Request: Full Participation
Does patient need a safe tray?: No
03/06/25 15:52
Diphenhydramine [Benadryl] 25 mg IV Q4HPRN PRN
Ipratropium/Albuterol Sulfate [Duoneb] 3 ml INH R Q4HPRN PRN
03/06/25 15:52
Activity As Directed
Activity Level: As Tolerated
Vital Signs As Directed
Frequency: Per unit guidelines
DX Deep Vein Thrombosis Video Routine
03/06/25 16:00
Dexamethasone Sod Phosphate [Decadron] 6 mg IV Q12H
03/06/25 20:00
Famotidine [Pepcid] 20 mg IV Q12
Heparin 5,000 units SC Q12
03/07/25 06:55
Complete Blood Count/With Diff IN AM
Comprehensive Metabolic Panel IN AM
03/09/25 11:00
DC Protocol for Telemetry ONCE
Abnormal Lab Results
03/06/25
11:53
Hgb 16.6 H g/dL
(12.0-16.0)
Hct 47.6 H %
(37.0-47.0)
MCH 31.1 H pg
(27.0-31.0)
D-Dimer 2.74 H ug/mlFEU
(0.00-0.50)
Glucose 149 H mg/dl
(70-99)
Magnesium 2.4 H mg/dl
(1.6-2.3)
03/06/25 11:53
03/06/25 11:53
Vital Signs
Initial and Last Documented VS:
Initial Vital Signs
Temp Pulse Resp BP Pulse Ox
97.7 F 95 20 153/79 99
03/06/25 11:39 03/06/25 11:39 03/06/25 11:39 03/06/25 11:39 03/06/25 11:39
Last Documented Vital Signs
Temp Pulse Resp BP Pulse Ox
98 F 107 20 107/65 95
03/07/25 11:00 03/07/25 11:00 03/07/25 11:00 03/07/25 11:00 03/07/25 11:00
MDM/Problems Addressed
MDM/Problems Addressed:
Although improved, patient remains symptomatic. Elevated D-dimer noted. Patient has significant, severe IV dye allergy. As such, VQ scan ordered. Patient will be admitted for further evaluation and treatment.
V/Q scan cancelled at the request of admitting hospitalist
*Critical Care Note
Total Time (30-74mins, 75-104mins- exclusive of procedures): 30 min
ED Attending Note
-
Portions of this chart may have been created with voice recognition software.� Occasional wrong word or��sound alike� substitutions may have occurred due to the inherent limitations of voice recognition software.
Discharge Plan
Departure
Patient Disposition: Admit
Date of Disposition: 03/06/25
Time of Disposition: 13:57
Admit to: IMU
Presentation/result/management discussed w/ accepting MD/DO: Hospitalist
Discharge Problem:
Severe allergic reaction with respiratory distress
Interventions
Interventions:
*Risk Screen - Suicide Last Done: 03/06/25 12:05
*General Assessment Last Done: 03/06/25 11:46
*Neglect/Abuse Screening Last Done: 03/06/25 11:46
*ED- Fall Risk Assessment Last Done: 03/06/25 11:46
*ED COVID-19 Vaccine History Last Done: 03/06/25 11:46
*Nursing Disposition Last Done: 03/06/25 15:46
ED- Cardiac Assessment Last Done: 03/06/25 11:46
ED- Pulmonary Assessment Last Done: 03/06/25 11:46
ED-Skin Assessment Last Done: 03/06/25 12:01
Discharge Date and Time
Discharge Date/Time: 03/06/25 15:47
--- NOTE | 2025-03-06 14:45 | HPS.HSE ---
Family Physician
-
Family Physician: Kong Cantu
Chief Complaint
-
anaphylaxis
History of Present Illness
74-year-old female past medical history of hypertension, hyponatremia, anxiety, obesity, lymphoma status posttreatment under surveillance, rheumatoid arthritis, back surgery complicated by DVT/PE previously treated by Eliquis, presenting with sudden
onset of throat swelling and closing sensation. In the morning she went outside to get her mail and had a banana and a Mountain Dew. After she came back inside she started having symptoms. This was associated with itching in her arms and chest.
Patient was also having cough and shortness of breath. Paramedics found the patient with the urticaria and significant respiratory distress. She is not hypoxemic. She was given epi injection and nebulizer and Solu-Medrol and magnesium. She
received 1 more dose of epinephrine en route to the hospital. Upon arrival she reports some improvement with improvement in the rash but continues to complain of shortness of breath with throat swelling.
Patient did have a similar reaction to peanuts in the past but this was milder. She has had peanut products after that incident. She is allergic to pollen but has mild seasonal allergies.
Her symptoms are currently improved. She also complains of generalized abdominal discomfort and bloating. She takes stool softener occasionally which she took last night. She had a bowel movement this morning.
She has a brother with eosinophilic esophagitis with multiple allergies. Patient herself occasionally has swallowing difficulty but was not diagnosed with this.
Patient recently had a right thigh lesion which was negative. She recently had a PET scan to follow-up with her lymphoma which was unremarkable.
Denies smoking or alcohol use.
Medical History
Past Medical History
Past Medical History: Reports Other (hypertension, hyponatremia, anxiety, obesity, lymphoma status posttreatment under surveillance, rheumatoid arthritis, back surgery complicated by DVT/PE previously treated by Eliquis,)
Past Surgical History: Reports None
Social History
Tobacco: Non-smoker
Alcohol: None
Drug: None
Family History
Family History: Not pertinent
Allergies / Home Medications
Allergies reflects when Allergies were last updated in [employer].
Home Medications with original date entered in [employer]
Allergy/Medication List:
Allergies
Allergy/AdvReac Type Severity Reaction Status Date / Time
amoxicillin [From Augmentin] Allergy diarrhea Verified 04/17/24 17:51
clavulanic acid Allergy diarrhea Verified 04/17/24 17:51
[From Augmentin]
Iodinated Contrast Media Allergy Rash Verified 04/17/24 10:07
kiwi Allergy Unknown Verified 04/17/24 10:07
peanut Allergy Unknown Verified 04/17/24 10:07
Home Medications
calcium citrate 200 mg PO DAILY 03/14/24
cholecalciferol (vitamin D3) 50 mcg (2,000 unit) capsule (Vitamin D3) 50 mcg PO DAILY 03/14/24
nystatin 100,000 unit/gram topical cream 1 applic topical DAILYPRN PRN skin issues 03/14/24
folic acid 800 mcg tablet 0.8 mg PO DAILY 03/21/24
rituximab 10 mg/mL concentrate,intravenous 735 mg IV Q2LILLA 04/17/24
ibuprofen 200 mg tablet (Advil) 400 mg PO Q8HPRN PRN mild pain 03/06/25
therapeutic multivitamin 1 tab PO DAILY 03/06/25
Review of Systems
-
History Source: Patient
A 12 point ROS was completed and negative except as noted: Yes
Constitutional: Reports No Symptoms
EENT: Reports No Symptoms
Respiratory: Reports No Symptoms
Cardiac: Reports No Symptoms
Abdomen/GI: Reports No Symptoms
: Reports No Symptoms
Musculoskeletal: Reports No Symptoms
Skin: Reports No Symptoms
Neurological: Reports No Symptoms
Endocrine: Reports No Symptoms
Hematologic/Lymphatic: Reports No Symptoms
Psych: Reports No Symptoms
Physical Exam
Vital Signs
Vital Signs
Temp Pulse Resp BP Pulse Ox
97.7 F 110 15 129/69 97
03/06/25 11:39 03/06/25 13:15 03/06/25 13:15 03/06/25 13:15 03/06/25 13:00
Physical Exam
General: Well Developed, Well Nourished and No Apparent Distress
HEENT: NormoCephalic, Moist mucous membranes and Atraumatic
Respiratory: Clear
Cardiac: S1/S2 and Regular Rhythm; No Murmur or Rub
GI: Soft, Non Tender, Non Distended and Normal Bowel Sounds; No Organomegaly
Rectal: Deferred by Provider
Musculoskeletal: No Clubbing, No Cyanosis and No Edema
Skin: No Rash
Neuro: Nonfocal/grossly intact
Laboratory Results
-
03/06/25 11:53
03/06/25 11:53
Laboratory Results
Total Bilirubin 0.6 mg/dl (0.2-1.3) 03/06/25 11:53
AST 32 U/L (14-36) 03/06/25 11:53
ALT 30 U/L (0-35) 03/06/25 11:53
Alkaline Phosphatase 86 U/L (38-126) 03/06/25 11:53
Troponin I < 0.012 ng/ml 03/06/25 11:53
Data Reviewed
-
Lab Data: Labs Reviewed by me
Old Records: Reviewed
Impression/Plan
-
IMPRESSION:
PLAN:
# Anaphylaxis
-Unclear trigger as no new medications or exposures, could be secondary to pollen although this seems unlikely
-Chest x-ray shows minor bibasilar opacities likely subsegmental atelectasis
- Given epi x 2 before arrival to hospital
- Continue DuoNebs
- Dexamethasone 6 every 12
-Benadryl as needed
- Pepcid every 12 hours
- VQ scan canceled as presentation clearly secondary to anaphylaxis
- Outpatient follow-up with seam hammerer
# Abdominal discomfort/bloating likely secondary to anaphylaxis
- Check abdominal x-ray
History of peanut allergy
History of hyponatremia
Anxiety
Obesity
Lymphoma
Rheumatoid arthritis
History of DVT/PE after back surgery
Full code
DVT prophylaxis�heparin
Regular diet
[2025-03-06] MEDS: DECADRON 6 MG IV (16:59)
[2025-03-06] MEDS: NSS (PRESERVATIVE FREE) 8 ML IV (20:27)
[2025-03-06] MEDS: HEPARIN 5000 UNITS SC (20:28)
--- NOTE | 2025-03-07 02:09 | W.PN.UPDATE ---
Update Note
Progress Note Update
Pt c/o insomnia. PT told RN that she takes ambien hs. PDMP checked. Script picked up january 2025 for ambien 10mg. Will give 5mg tonight as its 2 am
[2025-03-07] MEDS: AMBIEN 5 MG PO (02:13)
[2025-03-07 03:10] VITALS: BP 133/73
[2025-03-07] MEDS: DECADRON 6 MG IV ×2 (04:44→16:17)
[2025-03-07 07:00] VITALS: BP 138/81
--- NOTE | 2025-03-07 07:31 | W.PN.HOSP.TC ---
Addendum entered and electronically signed by Inderjit Jackson MD 03/07/25 16:13:
Seen and examined by me independently in collaboration with the medical policy specialist.
Lab data and imaging data reviewed.
Addendum as below :
Patient presented with cutaneous and respiratory symptoms of allergic reaction looking like anaphylaxis. She had a faint rash and flushing of the neck and the face but not urticaria or wheal reaction. She had a swelling of the lips and throat
closing up but no tongue swelling apparently. No nausea vomiting or diarrhea. She had associated sneezing with it and she has seasonal allergies and there seems a separate component of seasonal allergies .
She still feels scratch in her throat but no SOB and there is no tongue of buccal edema. Chest is clear without a wheeze.
Anaphylactic reaction without shock of unclear trigger. Improving with treatments. Continue with steroids and antihistamines for now. She did get couple of doses of epinephrine. Once symptoms improve further we will discharge patient but she was
advised to see an pellet press operator as an outpatient. She will be prescribed an EpiPen at the time of discharge.
Original Note:
Today's Communication/Plan
-
d/c today on PO prednisone, BID pepcid, benadryl prn, epipen to pharmacy
Assessment / Plan
Assessment / Plan
74 year old female presenting to ED with acute complaint of cough, shortness of breath, throat swelling, urticarial rash with no obvious trigger requiring x2 doses epinephrine
#Anaphylaxis
#h/o seasonal, peanut, kiwi allergy
- Unclear trigger as no new medications or exposures to known allergens prior to event
- Given epi x 2 before arrival to hospital
- d/c on prednisone 40mg x5d
- c/w pepcid BID and benadryl prn x5 days
- OP follow up with pellet press operator
- will send rx for epipen to pharmacy
#Abdominal discomfort/bloating likely secondary to anaphylaxis
- Abd XR showing nonobstructive gas patterns
#Anxiety - not actively taking medication. Mood stable.
#Obesity due to excess calories
#Lymphoma - on rituximab infusion
#Rheumatoid arthritis
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
DVT PPx: heparin sc
Code Status: Full Code
Anticipated Discharge: Within 24 hours
Subjective/Interval History
-
Date of Service: March 07, 2025
Feeling much better this morning. No GI or respiratory complaints. The swelling sensation in her throat is almost disappeared. No overnight events.
Objective Data
-
Labs:
Laboratory Results
03/07/25
06:55
WBC Pending
Hgb Pending
Hct Pending
Plt Count Pending
Sodium Pending
Potassium Pending
Chloride Pending
Carbon Dioxide Pending
BUN Pending
Creatinine Pending
Glucose Pending
Calcium Pending
Total Bilirubin Pending
AST Pending
ALT Pending
Alkaline Phosphatase Pending
Vital Signs:
Vital Signs
Temp Pulse Resp BP Pulse Ox
97.4 F 96 20 133/73 97
03/07/25 03:10 03/07/25 03:10 03/07/25 03:10 03/07/25 03:10 03/07/25 03:10
Review of Systems
-
All other systems: Reviewed and negative
EENT: Reports No Symptoms Reported
Respiratory: Reports No Symptoms
Cardiac: Reports No Symptoms
Abdomen/GI: Reports No Symptoms
Skin: Reports No Symptoms
Physical Exam
-
General: Well Developed, Well Nourished, No Apparent Distress and Comfortable
HEENT: Normocephalic, Atraumatic, Moist Mucous Membranes, Nose Appears Normal and Ears Appear Normal; Negative Oxygen
Respiratory: Clear to Auscultation; Negative Wheezes, Rales or Rhonchi
Cardiac: Regular Rhythm and S1/S2; Negative Murmur or Rub
GI: Soft, Nontender and Nondistended
Musculoskeletal: No Clubbing, No Cyanosis and No Edema
Skin: Other (blanching, non-delineated erythematous rash on the chest, neck, cheeks)
Neuro: Awake, Alert and Oriented
[2025-03-07] MEDS: HEPARIN 5000 UNITS SC ×2 (07:41→20:01)
[2025-03-07] MEDS: THERAGRAN 1 TABLET PO (07:41)
[2025-03-07] MEDS: FOLVITE 0.8 MG PO (07:42)
[2025-03-07] MEDS: OSCAL CAL 500 500 MG PO (07:42)
[2025-03-07] MEDS: NSS (PRESERVATIVE FREE) 8 ML IV ×2 (07:45→20:04)
[2025-03-07] MEDS: PEPCID 20 MG IV ×2 (07:45→20:03)
[2025-03-07 08:35] LABS: % Basophils 0.2 % (0-2); % Immature Granulocytes 0.7 % (0-0.5); % Lymphocytes 5.3 % (20.5-51.1); % Neutrophils 88.8 % (42.2-75.2); Absolute Immature Granulocytes 0.1 10^3/uL (0-0.05); Absolute Neutrophils 17.2 10^3/uL (1.4-6.5); Hematocrit 42.9 % (37.0-47.0); Mean Corpuscular Hgb 31.4 pg (27.0-31.0); Mean Corpuscular Volume 89.9 fL (81.0-99.0); Mean Platelet Volume 10.5 fL (7.4-10.4); Nucleated Red Blood Cells % 0 %; Platelet Count 215 10^3/uL (130-400); Red Blood Cell Count 4.77 10^6/uL (4.20-5.40); Red Cell Dist. Width 13.8 % (11.5-14.5); White Blood Cell Count 19.3 10^3/uL (4.8-10.8)
[2025-03-07 10:51] LABS: ALT (SGPT) 27 U/L (0-35); AST (SGOT) 27 U/L (14-36); Albumin 4.3 g/dl (3.5-5.0); Alkaline Phosphatase 82 U/L (38-126); Blood Urea Nitrogen 18 mg/dl (7-17); Carbon Dioxide 20 mmol/L (22-30); Chloride 106 mmol/L (98-107); Estimated Creatinine Clearance 80 ml/min; Glucose 129 mg/dl (70-99); Potassium 4.4 mmol/L (3.5-5.1); Sodium 139 mmol/L (135-145); Total Bilirubin 0.5 mg/dl (0.2-1.3); Total Protein 6.4 g/dl (6.3-8.2); eGFR > 60.00
[2025-03-07 11:00] VITALS: BP 107/65
--- NOTE | 2025-03-07 11:46 | CM ---
Addendum entered by Queenie Andrade 03/07/25 15:19:
D/c cancelled
Original Note:
Patient is for d/c today. Patient seen bedside w/ spouse, initial assessment. Patient is a 74-year-old female past medical history of hypertension, hyponatremia, anxiety, obesity, lymphoma status posttreatment under surveillance, rheumatoid
arthritis, back surgery complicated by DVT/PE previously treated by Ricky, presenting with sudden onset of throat swelling and closing sensation.
Patient resides w/ spouse in single story home- 1 step to enter. Independent w/ ambulating, no device required. Independent w/ ADLs. Patient uses CPAP at night, has grab bar in the home. Denies SNF hx, [facility] in the past.
Address, point of contact and insurance verified
PCP: Kong Cantu
Pharmacy: [facility]
Patient and spouse aware and are agreeable to d/c today. IMM verbally reviewed, copy given to patient, copy on chart
Plan: Home, no needs
[2025-03-07] MEDS: BENADRYL 25 MG IV (12:05)
--- NOTE | 2025-03-07 12:05 | PTCARENOTE ---
Patient c/o of increase pressure on chest, face flushed and face presents with swelling. MD Lemos notified and assessed patient at bedside. PRN benadryl given. d/c canceled
--- NOTE | 2025-03-07 12:30 | PTCARENOTE ---
Patient states PRN benadryl was affective and patient feels a little better. patient is still flushed and feels pressure on chest, but less than earlier. patient was able to eat lunch and reports no difficulty swallowing. MD Jackson notified and
patient will not be d/c today. will continue to monitor
--- NOTE | 2025-03-07 13:20 | W.PN.UPDATE ---
Update Note
Progress Note Update
Just prior to discharge patient had an episode of increased flushing on her chest and sensation of swelling in her throat. She had no respiratory compromise and was awake, alert, and not in distress when re-examined. Her erythematous rash had
increased in size and progressed to include her cheeks. The rash was warm to the tough and blanching. She was able to swallow liquids and able to communicate. She was given x1 dose IV Benadryl. The d/c orders were cancelled for her.
[2025-03-07 15:15] VITALS: BP 117/63
[2025-03-07 19:27] VITALS: BP 121/71
[2025-03-07] MEDS: FLUSH (NSS) 1 FLUSH IV (20:06)
[2025-03-07] MEDS: MOTRIN 400 MG PO (20:27)
[2025-03-07] MEDS: AMBIEN 10 MG PO (21:59)
[2025-03-07 23:38] VITALS: BP 117/71
[2025-03-08 02:59] VITALS: BP 117/68
[2025-03-08] MEDS: DECADRON 6 MG IV (03:51)
[2025-03-08] MEDS: FLUSH (NSS) 1 FLUSH IV (03:52)
[2025-03-08 07:00] VITALS: BP 122/68
[2025-03-08 07:16] LABS: % Basophils 0.2 % (0-2); % Immature Granulocytes 0.4 % (0-0.5); % Lymphocytes 6.8 % (20.5-51.1); % Monocytes 4.4 % (1.7-9.3); % Neutrophils 88.2 % (42.2-75.2); Absolute Immature Granulocytes 0.1 10^3/uL (0-0.05); Absolute Lymphocytes 1.1 10^3/uL (1.2-3.4); Absolute Monocytes 0.7 10^3/uL (0.1-0.6); Absolute Neutrophils 14.1 10^3/uL (1.4-6.5); Hematocrit 42.1 % (37.0-47.0); Mean Corp Hgb Conc. 33.3 g/dL (33.0-37.0); Mean Corpuscular Hgb 30.4 pg (27.0-31.0); Mean Corpuscular Volume 91.5 fL (81.0-99.0); Mean Platelet Volume 10.6 fL (7.4-10.4); Nucleated Red Blood Cells % 0 %; Platelet Count 189 10^3/uL (130-400); Red Cell Dist. Width 14.1 % (11.5-14.5); White Blood Cell Count 15.9 10^3/uL (4.8-10.8)
[2025-03-08] MEDS: PEPCID 20 MG IV (08:36)
[2025-03-08] MEDS: HEPARIN 5000 UNITS SC (08:37)
[2025-03-08] MEDS: NSS (PRESERVATIVE FREE) 8 ML IV (08:37)
[2025-03-08] MEDS: THERAGRAN 1 TABLET PO (08:37)
[2025-03-08] MEDS: OSCAL CAL 500 500 MG PO (08:38)
[2025-03-08] MEDS: FOLVITE 0.8 MG PO (08:38)
--- NOTE | 2025-03-08 11:29 | PTCARENOTE ---
after breakfast patient c/o 'feeling flushed' No other symptoms. Patient said same thing happened yesterday, resolved on its own. Hospitalist notified.
[2025-03-08 11:35] VITALS: BP 131/71
--- NOTE | 2025-03-08 12:57 | CM ---
Chart reviewed and patient is cleared for discharge today, home with spouse no needs.
Plan; Home no needs
--- NOTE | 2025-03-08 13:15 | W.PN.HOSP.TC ---
Addendum entered and electronically signed by Inderjit Jackson MD 03/08/25 15:46:
Seen and examined by me independently in collaboration with the medical data entry clerk.
Lab data and imaging data reviewed.
Addendum as below :
Patient without further lip swelling or any globus sensation in the throat. Denies any shortness of breath. She is without any wheeze. Chest is clear. No respiratory distress.
She is also without GI symptoms-tolerating food without nausea vomiting or dysphagia. No diarrhea.
She seems to have some protracted cutaneous symptoms of flushing. Yesterday she had a flushing with the faint redness up of the chest and the neck. That has improved in the night again she had it after breakfast which improved. Currently without
any obvious rash on the chest.
She had a symptomatology of anaphylaxis but without shock.
Unclear if this is triggered by seasonal pollen or food. She also complains of sneezing and burning eyes. She also seems to have some nasal drip which is new. Advised to use Flonase for possible seasonal allergies to help with her nasal and eye
symptoms.
Also advised her elimination diet --I advised to avoid to red meat, eggs, nuts and kiwi.
We we will give her a few more days of steroids and Pepcid because of protracted nature of her symptoms. Advised about the use of EpiPen and need to come back if she were to have respiratory symptoms which includes swollen lips, tongue or shortness
of breath.
She was advised to follow with food checkers and cashiers supervisor for further workup.
Discussed discharge plan with at bedside
Total time of discharge 32 min
Original Note:
Today's Communication/Plan
-
d/c home today
follow up with [employer] Blender as soon as possible
Assessment / Plan
Assessment / Plan
74 year old female presenting to ED with acute complaint of cough, shortness of breath, throat swelling, urticarial rash with no obvious trigger requiring x2 doses epinephrine
#Anaphylaxis
#h/o seasonal, peanut, kiwi allergy
- Unclear trigger as no new medications or exposures to known allergens prior to event
- Given epi x 2 before arrival to hospital
- d/c on prednisone 40mg x5d
- c/w pepcid BID and benadryl prn x5 days
- OP follow up with food checkers and cashiers supervisor
- c/w elimination diet and avoid allergen triggers until seen by food checkers and cashiers supervisor
- instructions given for red flag symptoms, epipen usage, and when to return tot hospital
#Abdominal discomfort/bloating likely secondary to anaphylaxis
- Abd XR showing nonobstructive gas patterns
#Anxiety - not actively taking medication. Mood stable.
#Obesity due to excess calories
#Lymphoma - on rituximab infusion
#Rheumatoid arthritis
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
DVT PPx: heparin sc
Code Status: Full Code
Anticipated Discharge: Today
Subjective/Interval History
-
Date of Service: March 08, 2025
had another episode of facial flushing and fullness in the throat following breakfast of eggs/sausage/muffin.
Objective Data
-
Labs:
Laboratory Results
03/08/25
06:00
WBC 15.9 H
Hgb 14.0
Hct 42.1
Plt Count 189
Vital Signs:
Vital Signs
Temp Pulse Resp BP Pulse Ox
97.9 F 78 21 131/71 96
03/08/25 11:35 03/08/25 11:35 03/08/25 11:35 03/08/25 11:35 03/08/25 11:35
I&O
03/07/25 03/08/25 03/09/25
06:59 06:59 06:59
Intake Total 1200 / 1200 480 / 480
Balance 1200 / 1200 480 / 480
Review of Systems
-
History Source: Patient
Constitutional: Reports No Symptoms
EENT: Reports Other (watery eyes)
Respiratory: Reports No Symptoms
Cardiac: Reports No Symptoms
Abdomen/GI: Reports No Symptoms
Genitourinary: Reports No Symptoms
Musculoskeletal: Reports No Symptoms
Skin: Reports Other (flushing)
Allergy / Immunology: Denies Allergic Rhinitis or Hives
Physical Exam
-
General: Well Developed, Well Nourished, No Apparent Distress, Comfortable and Obese
HEENT: Normocephalic, Atraumatic, Moist Mucous Membranes, Anicteric, [place] Conjunctivae, Nose Appears Normal, Ears Appear Normal and Other (no tongue swelling); Negative Pharyngeal Erythema
Respiratory: Clear to Auscultation; Negative Wheezes, Rales or Rhonchi
Cardiac: Regular Rhythm and S1/S2; Negative Murmur or Rub
GI: Soft, Nontender, Nondistended and Normal Bowel Sounds
Musculoskeletal: No Clubbing, No Cyanosis and No Edema
Skin: Warm and Dry
Neuro: Awake, Alert and Oriented
Psych: Calm
--- NOTE | 2025-03-08 18:42 | W.DCSUMMARY ---
Discharge Summary
Discharge Data
Date of Admission: 03/06/25
Date of Discharge: 03/08/25
Total time spent discharging patient (in min): >30m
-
Pending Results: Yes
Additional Pending Results:
Tryptase
Hospital Course
Discharging Physician : Dr. Donnie Lemos, Dr. Inderjit Jackson
Disposition : Home
Primary care physician : Dr. Kong Cantu
Principal Discharge diagnosis : Anaphylaxis
Chronic Discharge diagnosis : Anxiety, Obesity, H/o lymphoma, rheumatoid arthritis
Hospital Course :
74 year old female presenting to ED with acute complaint of cough, shortness of breath, throat swelling, urticarial rash with no single trigger requiring x2 doses epinephrine
#Anaphylaxis
#h/o seasonal, peanut, kiwi allergy
- Unclear trigger as no new medications or exposures to known allergens prior to event. Patient suspicious for maple tree allergy, but no formal testing has been done.
- Given epi x 2 before arrival to hospital
- Had two episodes of return of facial flushing and swelling sensation in throat during hospital stay after eating breakfast (inclusive of eggs, meat, gluten). Nor respiratory symptoms or airway compromise during this times. No need for repeat
Epinephrine.
- d/c on prednisone 40mg x5d, Pepcid BID and Benadryl prn x5 days
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
- Tryptase level ordered to r/o mast cell disorders; results pending
- instructions given for red flag symptoms, EpiPen usage, and when to return to the hospital
- recommendations given for elimination diet in the meantime -- specifically to avoid red meat, eggs, kiwi, nuts -- until seen by [employer]ter
#Abdominal discomfort/bloating likely secondary to anaphylaxis
- Abd XR showing nonobstructive gas patterns. No nausea, vomiting, diarrhea.
#Anxiety - not actively taking medication. Mood stable during admission
#Obesity due to excess calories
#Lymphoma - on rituximab infusion as out patient
#Rheumatoid arthritis
Important imaging findings :
CR Chest Portable - 1 View:
Lines and tubes: None.
Lungs: Low lung volumes are noted. Some minor bibasilar opacity most likely represents subsegmental atelectasis.. No pleural effusion or pneumothorax.
Heart: Cardiac and mediastinal contours are unremarkable.
Osseous structures: Visualized osseous structures are mostly intact.
CR Abdomen - 1 View:
Nonobstructive intestinal bowel gas pattern.
Procedure findings :
None.
Discharge Plan
-
Patient Disposition: Home (Routine Discharge)
Discharge Diagnosis/Procedures: Anaphylaxis
Condition: Good
Diet: No restrictions
Driving Restrictions: As prior to admission
Instructions: Anaphylaxis
Referrals:
Jann Tellez MD [Community] - in one to two weeks
Jez Mejias MD [Active] - in one to two weeks
Kong Cantu MD [Family Provider] -
Additional Discharge Medication Instructions: Speak with your PCP regarding which Allergy Group they recommend
Prescriptions:
New
prednisone 20 mg tablet
40 mg PO DAILY 5 Days Qty: 10 0RF
famotidine [Pepcid] 20 mg tablet
20 mg PO BID 5 Days Qty: 10 0RF
epinephrine 0.3 mg/0.3 mL auto-injector
0.3 mg IM ONCE Qty: 2 0RF
Continued
nystatin 100,000 unit/gram Cream
1 applic TOPICAL DAILYPRN PRN (Reason: skin issues)
calcium citrate 200 mg (950 mg) Tablet
200 mg PO DAILY
cholecalciferol (vitamin D3) [Vitamin D3] 50 mcg (2,000 unit) Capsule
50 mcg PO DAILY
folic acid 800 mcg Tablet
0.8 mg PO DAILY
rituximab 10 mg/mL Concentrate
735 mg IV [id number]
therapeutic multivitamin Tablet
1 tab PO DAILY
ibuprofen [Advil] 200 mg Tablet
400 mg PO Q8HPRN PRN (Reason: mild pain)
zolpidem [Ambien] 10 mg Tablet
10 mg PO HS PRN (Reason: sleep)
Discharge Orders:
Discharge Patient (As Directed); Ordered 03/08/25
Ordered By: Donnie Lemos
Discharge Date and Time
Discharge Date/Time: 03/08/25 13:52
Print Language: [place]ET[place]ESE
== END 2025-03-08 13:52 | disposition home or self-care (01) | DRG 916 ==
LOC: 4 WEST ACU 14:44
PROVIDERS: ADMITTING PHYSICIAN Hospitalist; ATTENDING PHYSICIAN Internal Medicine; EMERGENCY PHYSICIAN Emergency Medicine; FAMILY PHYSICIAN Internal Medicine
PROC: 5A09357 Assistance with Respiratory Ventilation, Less than 24 Consecutive Hours, Continuous Positive Airway Pressure (ICD-10-PCS; 2025-03-06)
DX: T78.2XXA Anaphylactic shock, unspecified, initial encounter (principal); C85.90 Non-Hodgkin lymphoma, unspecified, unspecified site; J98.11 Atelectasis; R06.02 Shortness of breath; L50.9 Urticaria, unspecified; F41.9 Anxiety disorder, unspecified; E66.09 Other obesity due to excess calories; R06.03 Acute respiratory distress; R14.0 Abdominal distension (gaseous); I10 Essential (primary) hypertension; J30.2 Other seasonal allergic rhinitis; M06.9 Rheumatoid arthritis, unspecified; M48.061 Spinal stenosis, lumbar region without neurogenic claudication; Z91.010 Allergy to peanuts; Z86.718 Personal history of other venous thrombosis and embolism; Z86.711 Personal history of pulmonary embolism; Z91.041 Radiographic dye allergy status; Z68.38 Body mass index [BMI] 38.0-38.9, adult
CPT/HCPCS: 36415; 71045; 74018; 80053; 83520; 83615; 83735; 83880; 84484; 85025; 85379; 86140; 93005; 94640; 96374; 96375; 99285

== ENCOUNTER → 2025-07-14 08:31 | Outpatient (REF) | payer MEDICARE, SELFPAY ==
[2025-07-14 08:35] LABS: Glucose 96 mg/dl (70-99)
== END ==
LOC: PET 08:31
PROVIDERS: ATTENDING PHYSICIAN Internal Medicine Hematology & Oncology
DX: C85.19 Unspecified B-cell lymphoma, extranodal and solid organ sites (principal); R71.8 Other abnormality of red blood cells; R79.0 Abnormal level of blood mineral; I82.409 Acute embolism and thrombosis of unspecified deep veins of unspecified lower extremity; D75.1 Secondary polycythemia
CPT/HCPCS: 82947

== ENCOUNTER → 2025-07-16 10:17 | Outpatient (REF) | payer MEDICARE, SELFPAY ==
[2025-07-16 12:36] LABS: Hematocrit 44.1 % (37.0-47.0); Hemoglobin 14.7 g/dL (12.0-16.0); Mean Corp Hgb Conc. 33.3 g/dL (33.0-37.0); Mean Corpuscular Volume 90.4 fL (81.0-99.0); Nucleated Red Blood Cells % 0 %; Platelet Count 195 10^3/uL (130-400); Red Cell Dist. Width 13.2 % (11.5-14.5)
[2025-07-16 13:06] LABS: ALT (SGPT) 26 U/L (0-35); AST (SGOT) 28 U/L (14-36); Albumin 4.7 g/dl (3.5-5.0); Alkaline Phosphatase 77 U/L (38-126); Blood Urea Nitrogen 19 mg/dl (7-17); Calcium 9.5 mg/dl (8.4-10.2); Carbon Dioxide 27 mmol/L (22-30); Chloride 105 mmol/L (98-107); Glucose 93 mg/dl (70-99); HDL Cholesterol 54 mg/dl; LDH 230 U/L (120-246); LDL Cholesterol, Calculated 121 mg/dl; Potassium 4.4 mmol/L (3.5-5.1); Sodium 138 mmol/L (135-145); Total Protein 7.2 g/dl (6.3-8.2); Very Low Density Lipoprotein 19 mg/dl (0-30); eGFR > 60.00
[2025-07-16 13:11] LABS: C-Reactive Protein 5.90 mg/L (0.0-10.00)
== END ==
LOC: HWLAB 10:17
PROVIDERS: ATTENDING PHYSICIAN Internal Medicine Rheumatology; FAMILY PHYSICIAN Internal Medicine; OTHER PHYSICIAN Internal Medicine; REFERRING PHYSICIAN Internal Medicine Hematology & Oncology
DX: C83.30 Diffuse large B-cell lymphoma, unspecified site (principal); D58.2 Other hemoglobinopathies; D89.2 Hypergammaglobulinemia, unspecified; E78.49 Other hyperlipidemia; M05.79 Rheumatoid arthritis with rheumatoid factor of multiple sites without organ or systems involvement; M35.00 Sjogren syndrome, unspecified; M50.90 Cervical disc disorder, unspecified, unspecified cervical region; M54.2 Cervicalgia; M79.671 Pain in right foot; M79.672 Pain in left foot; M81.0 Age-related osteoporosis without current pathological fracture; E04.1 Nontoxic single thyroid nodule; R68.89 Other general symptoms and signs; E66.9 Obesity, unspecified; R71.8 Other abnormality of red blood cells; R79.0 Abnormal level of blood mineral; I82.409 Acute embolism and thrombosis of unspecified deep veins of unspecified lower extremity; D75.1 Secondary polycythemia; C85.19 Unspecified B-cell lymphoma, extranodal and solid organ sites; L50.0 Allergic urticaria; T78.3XXA Angioneurotic edema, initial encounter
CPT/HCPCS: 36415; 80053; 80061; 83520; 83615; 84443; 85025; 86140

== ENCOUNTER → 2025-09-22 14:02 | Outpatient (REF) | payer MEDICARE, SELFPAY | LOC: HWWDC 14:02 | PROVIDERS: ATTENDING PHYSICIAN Internal Medicine | DX: Z12.31 Encounter for screening mammogram for malignant neoplasm of breast (principal) | CPT/HCPCS: 77063; 77067 ==